=== PATIENT | male | born 1940 | race African-American/Black ===

== ENCOUNTER 2017-01-11 10:16 | Emergency (ER) | payer OTHER ==
[2017-01-11 10:36] VITALS: TEMP 98.3; BMI 23.5
--- NOTE | 2017-01-11 11:21 | PDOC ---
History of Present Illness - History of Present Illness Initial Comments: 01/11/17 11:27 The patient is a 76 year old male, with a significant past medical history of asthma, COPD, hypertension, hyperlipidemia, seizure disorder (last seizure 5 years ago), enlarged prostate, adenomatous polyp, diverticulosis/itis, spinal stenosis, disc herniation with mass, chronic back pain with opioid dependence, bipolar disorder, diabetes, everyday tobacco use, who presents to the emergency department with epigastric pain for one day. He states he woke up with the pain yesterday morning. He denies any recent trauma or heavy lifting. He reports the pain as sharp localized to his epigastric region. He states he thought it was gas, took Maalox, passed gas, but denies pain resolution. He states the pain has been constant, nonradiating, and exacerbated with bending forward or walking. He denies any increase in shortness of breath. He states he has not needed his percocet all week because his back pain wasnt too bad this week. He denies chest pain, shortness of breath, headache and dizziness. He denies fever, chills, nausea, vomit, diarrhea and constipation. He denies dysuria, frequency, urgency and hematuria. Allergies: NKDA Past surgical history: Cardiac stent x1, hernia repair (10/15/16), prostate shaved (2009), and prostatectomy, Social history: everyday tobacco use, Denies any recent alcohol or cocaine use ( formerly rehabilitated) PCP - Dr. Gomez <Emily Crystal - Last Filed: 01/11/17 11:27> <Avani Bradford - Last Filed: 01/11/17 12:49> - General Chief Complaint: Pain, Acute Stated Complaint: ABD PAIN Time Seen by Provider: 01/11/17 10:43 Past History <Emily Crystal - Last Filed: 01/11/17 11:27> - Past Medical History Anemia: No Asthma: Yes Cancer: No Cardiac Disorders: No CVA: No COPD: Yes CHF: No Dementia: No Diabetes: Yes GI Disorders: Yes (ADENOMATOUS POLYP;DIVERLOSIS/ITIS;GASTRITIS;H/H) Disorders: Yes (ENLARGED PROSTATE) HTN: Yes Hypercholesterolemia: Yes Liver Disease: No Seizures: Yes (none x 5 years) Thyroid Disease: No Other medical history: pt reports baseline bradycardia - Surgical History Cardiac Surgery: Yes (STENT X1) - Immunization History Immunization Up to Date: Yes - Psycho/Social/Smoking Cessation Hx Anxiety: No Suicidal Ideation: No Smoking Status: Yes Smoking History: Unknown if ever smoked Have you smoked in the past 12 months: Yes Number of Cigarettes Smoked Daily: 5 Cigars Per Day: 0 'Breaking Loose' booklet given: 06/07/15 Hx Alcohol Use: No Drug/Substance Use Hx: No Substance Use Type: None Hx Substance Use Treatment: Yes (outpatient rehab, AA) <Avani Bradford - Last Filed: 01/11/17 12:49> - Past Medical History Allergies/Adverse Reactions: Allergies Allergy/AdvReac Type Severity Reaction Status Date / Time No Known Allergies Allergy Verified 10/30/15 11:50 Home Medications: Ambulatory Orders Citalopram Hydrobromide [Celexa -] 20 mg PO DAILY 04/18/14 Phenytoin Na Extended [Dilantin -] 100 mg PO TID 04/18/14 Alfuzosin HCl [Alfuzosin HCl ER] 10 mg PO DAILY 04/28/15 Quetiapine Fumarate [Seroquel] 300 mg PO HS 04/28/15 Aspirin [ASA -] 81 mg PO DAILY 06/21/15 Tizanidine HCl 4 mg PO BID PRN 06/21/15 Cyanocobalamin [Vitamin B12 -] 1,000 mcg PO DAILY 01/30/16 Diphenhydramine [Benadryl -] 50 mg PO HS 01/30/16 Gabapentin [Neurontin -] 300 mg PO HS 01/30/16 Metoprolol Tartrate [Lopressor -] 25 mg PO BID 01/30/16 Metformin HCl [Glucophage -] 850 mg PO DAILY@0700 10/30/16 Review of Systems - Review of Systems Able to Perform ROS?: Yes Comments:: 01/11/17 11:27 GENERAL/CONSTITUTIONAL: No fever or chills. No weakness. HEAD, EYES, EARS, NOSE AND THROAT: No change in vision. No ear pain or discharge. No sore throat. CARDIOVASCULAR: No chest pain or shortness of breath. RESPIRATORY: No cough, wheezing, or hemoptysis. GASTROINTESTINAL: (+) epigastric pain. No nausea, vomiting, diarrhea or constipation. GENITOURINARY: No dysuria, frequency, or change in urination. MUSCULOSKELETAL: No joint or muscle swelling or pain. No neck or back pain. SKIN: No rash NEUROLOGIC: No headache, vertigo, loss of consciousness, or change in strength/ sensation. ENDOCRINE: No increased thirst. No abnormal weight change. HEMATOLOGIC/LYMPHATIC: No anemia, easy bleeding, or history of blood clots. ALLERGIC/IMMUNOLOGIC: No hives or skin allergy <Emily Crystal - Last Filed: 01/11/17 11:27> *Physical Exam - Vital Signs Last Vital Signs Temp Pulse Resp BP Pulse Ox 98.3 F 50 L 16 115/68 96 01/11/17 10:29 01/11/17 10:29 01/11/17 10:29 01/11/17 10:29 01/11/17 10:29 <Emily Crystal - Last Filed: 01/11/17 11:27> - Vital Signs Last Vital Signs Temp Pulse Resp BP Pulse Ox 98.3 F 50 L 16 115/68 96 01/11/17 10:29 01/11/17 10:29 01/11/17 10:29 01/11/17 10:29 01/11/17 10:29 - Physical Exam Comments: GENERAL: Awake, alert, and fully oriented, in no acute distress HEAD: No signs of trauma EYES: PERRLA, EOMI, sclera anicteric, conjunctiva clear ENT: Auricles normal inspection, hearing grossly normal, nares patent, oropharynx clear without exudates. Moist mucosa NECK: Normal ROM, supple, no lymphadenopathy, JVD, or masses LUNGS: Breath sounds equal, clear to auscultation bilaterally. No wheezes, and no crackles HEART: Bradycardia, normal S1 and S2, no murmurs, rubs or gallops ABDOMEN: Soft, nontender, normoactive bowel sounds. No guarding, no rebound. No masses EXTREMITIES: Normal range of motion, no edema. No clubbing or cyanosis. No cords, erythema, or tenderness NEUROLOGICAL: Cranial nerves II through XII grossly intact. Normal speech, normal gait SKIN: Warm, Dry, normal turgor, no rashes or lesions noted. <Avani Bradford - Last Filed: 01/11/17 12:49> Heart Score/ECG Review - ECG Impressions Comment:: EKG read 11:55- Sinus lula 43 bpm, 1st deg AV block <Avani Bradford - Last Filed: 01/11/17 12:49> ED Treatment Course - LABORATORY CBC & Chemistry Diagram: 01/11/17 11:41 01/11/17 11:41 <Avani Bradford - Last Filed: 01/11/17 12:49> Medical Decision Making - Medical Decision Making 01/11/17 12:48 Patient has preexisting history of sinus bradycardia. His symptoms are positional, he states he only has the pain when he twists his torso, suggesting muscular etiology. Stable for DC home. <Avani Bradford - Last Filed: 01/11/17 12:49> *DC/Admit/Observation/Transfer - Attestations Scribe Attestion: 01/11/17 11:28 Documentation prepared by Emily Crystal, acting as medical technicians for Avani Bradford MD, <Emily Crystal - Last Filed: 01/11/17 11:27> - Discharge Dispostion Admit: No <Avani Bradford - Last Filed: 01/11/17 12:49> Diagnosis at time of Disposition: Muscle strain Abdominal pain Qualifiers: Abdominal location: upper abdomen, unspecified Qualified Code(s): R10.10 - Upper abdominal pain, unspecified - Discharge Dispostion Disposition: HOME Condition at time of disposition: Stable
[2017-01-11 12:12] LABS: BASOPHIL 0.7 % (0-2.0); EOSINOPHIL 3.5 % (0-4.5); MCHC 33.1 g/dl (32.0-35.9); MEAN CELL VOLUME 96.6 fl (80-96); MEAN PLT VOLUME 6.9 fl (7.5-11.1); NEUTROPHILS 41.9 % (42.8-82.8); PLATELET COUNT 202 K/MM3 (134-434); RDW 15.4 % (11.9-15.9); WHITE BLOOD COUNT 6.7 K/mm3 (4.0-10.0)
[2017-01-11 12:31] VITALS: BP 121/64
[2017-01-11 12:32] VITALS: PULSE 48
[2017-01-11 12:36] LABS: ALBUMIN 3.8 g/dl (3.4-5.0); ANION GAP 4 (8-16); BILIRUBIN,TOTAL 0.4 mg/dL (0.2-1.0); CALCIUM 8.9 mg/dL (8.5-10.1); CO2 28 mmol/L (21-32); CREATININE 0.8 mg/dL (0.7-1.3); GLUCOSE,RANDOM 112 mg/dL (74-106); SGPT/ALT 33 U/L (12-78); TOT PROT 6.7 g/dl (6.4-8.2)
[2017-01-11 12:38] LABS: ALK PHOS 107 U/L (45-117); TROPONIN I < 0.02 ng/ml (0.00-0.05)
[2017-01-11 12:39] LABS: CPK 99 IU/L (39-308); SGOT/AST 24 U/L (15-37)
--- NOTE | 2017-01-12 20:52 | EKG ---
Test Reason : Blood Pressure : / mmHG Vent. Rate : 043 BPM Atrial Rate : 043 BPM P-R Int : 252 ms QRS Dur : 092 ms QT Int : 476 ms P-R-T Axes : 061 059 050 degrees QTc Int : 402 ms MARKED SINUS BRADYCARDIA WITH 1ST DEGREE A-V BLOCK NONSPECIFIC ST ABNORMALITY ABNORMAL ECG WHEN COMPARED WITH ECG OF 23-AUG-2015 11:47, NO SIGNIFICANT CHANGE WAS FOUND Confirmed by HUMBERTO DUPREE, ZEB ([id number]) on 01/12/2017 8:51:58 PM Referred By: Confirmed By:ZEB PAUL MD
== END 2017-01-11 13:09 | disposition home or self-care (01) ==
LOC: JER 10:16
DX: S39.011A Strain of muscle, fascia and tendon of abdomen, initial encounter (principal); X58.XXXA Exposure to other specified factors, initial encounter; Y93.89 Activity, other specified; Y92.038 Other place in apartment as the place of occurrence of the external cause; I25.10 Atherosclerotic heart disease of native coronary artery without angina pectoris; I10 Essential (primary) hypertension; Z95.5 Presence of coronary angioplasty implant and graft; E11.9 Type 2 diabetes mellitus without complications; E78.00 Pure hypercholesterolemia, unspecified; J45.909 Unspecified asthma, uncomplicated; J44.9 Chronic obstructive pulmonary disease, unspecified; N40.0 Benign prostatic hyperplasia without lower urinary tract symptoms; M54.5 Low back pain; G89.29 Other chronic pain; F31.9 Bipolar disorder, unspecified; F11.20 Opioid dependence, uncomplicated; Z86.69 Personal history of other diseases of the nervous system and sense organs; Z90.79 Acquired absence of other genital organ(s)
CPT/HCPCS: 36415; 80053; 83690; 84484; 85025; 93005; 93010; 99283-25

== ENCOUNTER 2018-01-02 10:36 | Observation (INO) | payer OTHER ==
--- NOTE | 2018-01-02 10:45 | PDOC ---
History of Present Illness - General Chief Complaint: Seizure Stated Complaint: Seizure Time Seen by Provider: 01/02/18 10:43 History Source: Patient - History of Present Illness Initial Comments: 01/02/18 11:04 "I woke up and I was twitching" Patient is a 77 year old male with a PMH of seizure disorder (cannot recall date of last seizure, as per EMR 5 years previous) asthma, COPD, HTN, HLD, enlarged prostate, adenomatous polyp, diverticulosis/itis, spinal stenosis, disc herniation with mass, chronic back pain with opioid dependence, bipolar disorder, diabetes, presents to the ED with R facial twitch. Patient states he has been intermittently non-adherent to his daily Phenytoin and notes sometime he forgets to take his medication. He denies chest pain, shortness of breath, headache and dizziness. He denies fever, chills, nausea, vomit, diarrhea and constipation. He denies dysuria, frequency, urgency and hematuria. Allergies: NKDA Past surgical history: Cardiac stent x1, hernia repair (10/15/16), prostate shaved (2009), and prostatectomy, Social history: 5 cigarettes daily, denies other toxic habits PMD: Dr. Gomez Past History - Past Medical History Allergies/Adverse Reactions: Allergies Allergy/AdvReac Type Severity Reaction Status Date / Time No Known Allergies Allergy Verified 01/02/18 18:17 Home Medications: Ambulatory Orders Citalopram Hydrobromide [Celexa -] 20 mg PO DAILY 04/18/14 Phenytoin Na Extended [Dilantin -] 100 mg PO TID 04/18/14 Alfuzosin HCl [Alfuzosin HCl ER] 10 mg PO DAILY 04/28/15 Quetiapine Fumarate [Seroquel] 300 mg PO HS 04/28/15 Cyanocobalamin [Vitamin B12 -] 1,000 mcg PO DAILY 01/30/16 Diphenhydramine [Benadryl -] 50 mg PO HS 01/30/16 Gabapentin [Neurontin -] 300 mg PO HS 01/30/16 Metoprolol Tartrate [Lopressor -] 25 mg PO BID 01/30/16 metFORMIN HCL [Glucophage -] 850 mg PO DAILY@0700 10/30/16 Albuterol Sulfate Inhaler - [Ventolin Hfa Inhaler -] 2 inh PO Q4H PRN 01/30/17 Aspirin [ASA -] 81 mg PO DAILY 01/30/17 Docusate Sodium [Colace -] 100 mg PO BID 01/30/17 Lactulose [Generlac] 10 gm PO DAILY 01/30/17 Montelukast Na [Singulair -] 10 mg PO HS 01/30/17 Omeprazole 20 mg PO DAILY 01/30/17 Quinapril HCl [Accupril] 10 mg PO DAILY 01/30/17 Rosuvastatin [Crestor -] 20 mg PO HS 01/30/17 Sitagliptin Phosphate [Januvia] 100 mg PO DAILY 01/30/17 Olopatadine HCl 1 drop OU BID #1 bottle 10/21/17 Varenicline Tartrate [Chantix] 0.5 mg NR BID 30 Days #57 tab 11/21/17 Ergocalciferol [Vitamin D2] 50,000 unit PO Q7D@1000 #4 capsule 12/22/17 Multivitamin [Multiple Vitamins] 1 each PO DAILY #30 tablet 12/22/17 Oxycodone HCl/Acetaminophen [Percocet 10-325 mg Tablet] 1 each PO TID PRN #90 tablet MDD 3 12/22/17 Tizanidine HCl 4 mg PO BID PRN #60 tablet 12/22/17 Anemia: No Asthma: Yes Cancer: No Cardiac Disorders: No CVA: No COPD: Yes CHF: No Dementia: No Diabetes: Yes GI Disorders: Yes (ADENOMATOUS POLYP;DIVERLOSIS/ITIS;GASTRITIS;H/H) Disorders: Yes (ENLARGED PROSTATE) HTN: Yes Hypercholesterolemia: Yes Liver Disease: No Seizures: Yes (none x 5 years) Thyroid Disease: No - Surgical History Abdominal Surgery: Yes (hernia repair 10/23/16) Cardiac Surgery: Yes (STENT X1) - Immunization History Immunization Up to Date: Yes - Suicide/Smoking/Psychosocial Hx Smoking Status: Yes Smoking History: Current every day smoker Have you smoked in the past 12 months: Yes Number of Cigarettes Smoked Daily: 10 Cigars Per Day: 0 Information on smoking cessation initiated: No 'Breaking Loose' booklet given: 06/07/15 Hx Alcohol Use: Yes (none x 10 years) Drug/Substance Use Hx: Yes (none x 10 years) Substance Use Type: Alcohol, Cocaine Hx Substance Use Treatment: Yes (outpatient rehab, AA) Review of Systems - Review of Systems Constitutional: No: Chills, Fever HEENTM: No: Blurred Vision, Double Vision Respiratory: No: Cough, Shortness of Breath, Stridor, Wheezing, Hemoptysis Cardiac (ROS): No: Chest Pain, Lightheadedness, Palpitations, Syncope ABD/GI: No: Constipated, Diarrhea, Nausea, Vomiting : No: Burning, Dysuria Neurological: Yes: Other (facial twitch). No: Numbness, Tingling Psychiatric: No: Anxiety, Depression *Physical Exam - Vital Signs Last Vital Signs Temp Pulse Resp BP Pulse Ox 98.4 F 78 18 124/97 99 01/02/18 10:41 01/02/18 10:41 01/02/18 10:41 01/02/18 10:41 01/02/18 10:41 - Physical Exam General Appearance: Yes: Nourished, Appropriately Dressed HEENT: positive: EOMI, SAMUEL, Other (L sided facial twitching) Neck: positive: Trachea midline, Supple Respiratory/Chest: positive: Lungs Clear, Normal Breath Sounds. negative: Crackles, Rales, Rhonchi, Wheezing Cardiovascular: positive: S1, S2. negative: Edema, JVD Gastrointestinal/Abdominal: positive: Normal Bowel Sounds, Soft. negative: Distended, Guarding, Rebound, Tenderness Musculoskeletal: negative: CVA Tenderness (R), CVA Tenderness (L) Extremity: positive: Normal Capillary Refill, Normal Inspection Integumentary: positive: Normal Color, Dry, Warm Neurologic: positive: Fully Oriented, Alert ED Treatment Course - LABORATORY CBC & Chemistry Diagram: 01/02/18 11:51 01/02/18 11:51 Medical Decision Making - Medical Decision Making 01/02/18 12:56 77 year old male presents w/seizure. L sided facial twitch at presentation. VS unremarkable DDX: seizure, post-ictal, TIA, trauma W/u: Head CT, basic labs, Dilantin level, Troponin, ECG Tx: Ativan (2 mg) 01/02/18 13:[address] negative for acute pathology. S/p Ativan, facial twitching resolved. 01/02/18 13:27 Patient lethargic s/p Ativan, but arousable Dilantin therapeutic @ 13 Case d/w Neurology (Dr. Pitt) - recommends increasing Phenytoin from 300 mg ( 200 mg QAM + 100 mg QHS) to 200 mg BID 01/02/18 13:31 Troponin (-) x1 VS stable Case d/w social work -will see if patient qualifies for home health aide 01/02/18 14:19 Case d/w inpatient medicine service. Given patient's previous remote h/o seizure, patient would benefit from further observation and evaluation including neurology consult. Case d/w hospitalist medicine service, accepts for observation admission. Patient counseled on plan of care, amenable to admission. *DC/Admit/Observation/Transfer Diagnosis at time of Disposition: Seizure - Discharge Dispostion Condition at time of disposition: Fair Decision to Admit order: Yes - Referrals - Patient Instructions - Post Discharge Activity
[2018-01-02] MEDS ORDERED: LORazepam 2 MG/ML SDV VIAL ONE (11:00)
--- NOTE | 2018-01-02 11:33 | PDOC ---
Attending Attestation - Resident Resident Name: Yamilet Garcia - ED Attending Attestation I have performed the following: I have examined & evaluated the patient, The case was reviewed & discussed with the resident, I agree w/resident's findings & plan, Exceptions are as noted - HPI HPI: 01/02/18 11:33 agree with residents HPI - Physicial Exam PE: 01/02/18 11:34 agree with residents PE - Medical Decision Making 01/02/18 13:14 77 years old past medical history significant for seizure disorder on Dilantin presents with tonic-clonic seizure. Last seizure 5 years ago. Status post seizure right-sided facial twitching. Given Ativan upon arrival. No longer with any observed seizure activity Therapeutic on Dilantin case discussed with neurology patient lethargic status post Ativan we'll observe and reassess
[2018-01-02 12:03] LABS: BASO % 0.2 % (0-2.0); EOS % 3.3 % (0-4.5); HEMATOCRIT 39.1 % (35.4-49); HEMOGLOBIN 13.2 GM/dL (11.7-16.9); LYMPH % 33.5 % (8-40); MCH 32.5 pg (25.7-33.7); MCHC 33.7 g/dl (32.0-35.9); MEAN CELL VOLUME 96.5 fl (80-96); MEAN PLT VOLUME 6.9 fl (7.5-11.1); MONO % 13.5 % (3.8-10.2); NEUT % 49.5 % (42.8-82.8); PLATELET COUNT 238 K/MM3 (134-434); RBC 4.05 M/mm3 (4.00-5.60); RDW 14.5 % (11.9-15.9)
[2018-01-02 12:24] LABS: ALBUMIN 4.1 g/dl (3.4-5.0); ALK PHOS 104 U/L (45-117); ANION GAP 9 (8-16); BILIRUBIN,TOTAL 0.3 mg/dL (0.2-1.0); BLOOD UREA NITROGEN 16 mg/dL (7-18); CALCIUM 9.1 mg/dL (8.5-10.1); CHLORIDE 108 mmol/L (98-107); CO2 25 mmol/L (21-32); CREATININE 1.2 mg/dL (0.7-1.3); GLUCOSE,RANDOM 137 mg/dL (74-106); POTASSIUM 4.3 mmol/L (3.5-5.1); SGOT/AST 12 U/L (15-37); SGPT/ALT 19 U/L (12-78); SODIUM 142 mmol/L (136-145); TOT PROT 6.9 g/dl (6.4-8.2)
--- NOTE | 2018-01-02 16:54 | HP ---
CHIEF COMPLAINT: "I was twitching" PCP: Dr. Patricia Colbert HISTORY OF PRESENT ILLNESS: Patient poor historian and is lethargic after receiving Lorazepam 2mg IM. H&P obtained mainly from chart review This is a 77 year old male with PMHx of seizure disorder (states last seizure 1 year ago), asthma, HTN, hyperlipidemia, enlarged prostate, adenomatous polyp, diverticulosis/itis, spinal stenosis, disc herniation, chronic back pain with opioid dependence, bipolar disorder, diabetes, presents to the ED with a right facial twitch since yesterday. The patient was unable to provide me with any more detail. He was given Ativan in the ED for possible seizure activity. ER course was notable for: (1) Temp 98.4, pulse 78, BP 124/97, resp 18, O2 99% on RA (2) Dilantin level 13 (3) Head CT with moderate atrophy. No gross evidence of a focal intracranial lesion or hemorrhage is seen Recent Travel: unknown PAST MEDICAL HISTORY: as above PAST SURGICAL HISTORY: unknown Social History: Smokin cigarettes per day/60 years Alcohol: unknown Drugs: denies Family History: Allergies No Known Allergies Allergy (Verified 01/11/17 13:11) HOME MEDICATIONS: Home Medications Medication Instructions Recorded Citalopram Hydrobromide [Celexa -] 20 mg PO DAILY 04/18/14 Phenytoin Na Extended [Dilantin -] 100 mg PO TID 04/18/14 Alfuzosin HCl [Alfuzosin HCl ER] 10 mg PO DAILY 04/28/15 Quetiapine Fumarate [Seroquel] 300 mg PO HS 04/28/15 Cyanocobalamin [Vitamin B12 -] 1,000 mcg PO DAILY 01/30/16 Diphenhydramine [Benadryl -] 50 mg PO HS 01/30/16 Gabapentin [Neurontin -] 300 mg PO HS 01/30/16 Metoprolol Tartrate [Lopressor -] 25 mg PO BID 01/30/16 metFORMIN HCL [Glucophage -] 850 mg PO DAILY@0700 10/30/16 Albuterol Sulfate Inhaler - 2 inh PO Q4H PRN 01/30/17 [Ventolin Hfa Inhaler -] Aspirin [ASA -] 81 mg PO DAILY 01/30/17 Docusate Sodium [Colace -] 100 mg PO BID 01/30/17 Lactulose [Generlac] 10 gm PO DAILY 01/30/17 Montelukast Na [Singulair -] 10 mg PO HS 01/30/17 Omeprazole 20 mg PO DAILY 01/30/17 Quinapril HCl [Accupril] 10 mg PO DAILY 01/30/17 Rosuvastatin [Crestor -] 20 mg PO HS 01/30/17 Sitagliptin Phosphate [Januvia] 100 mg PO DAILY 01/30/17 Olopatadine HCl 1 drop OU BID #1 bottle 10/21/17 Varenicline Tartrate [Chantix] 0.5 mg NR BID 30 Days #57 tab 11/21/17 Ergocalciferol [Vitamin D2] 50,000 unit PO Q7D@1000 #4 capsule 12/22/17 Multivitamin [Multiple Vitamins] 1 each PO DAILY #30 tablet 12/22/17 Oxycodone HCl/Acetaminophen 1 each PO TID PRN #90 tablet MDD 3 12/22/17 [Percocet 10-325 mg Tablet] Tizanidine HCl 4 mg PO BID PRN #60 tablet 12/22/17 REVIEW OF SYSTEMS Limited as patient is lethargic and falls asleep during questioning Absent: unexplained weight gain, unexplained weight loss, heat intolerance, cold intolerance NEUROLOGIC: Right sided facial twitching that began yesterday PHYSICAL EXAMINATION Vital Signs - 24 hr 01/02/18 01/02/18 10:41 15:03 Temperature 98.4 F Pulse Rate 78 Pulse Rate [ 62 Apical] Respiratory 18 16 Rate Blood Pressure 124/97 Blood Pressure 130/67 [Left Arm] O2 Sat by Pulse 99 98 Oximetry (%) GENERAL: Lethargic, A&Ox2 (person and place), thinks its 1985 HEAD: Normal with no signs of trauma. EYES: Pupils equal, round and reactive to light EARS, NOSE, THROAT: Ears normal, nares patent, oropharynx clear without exudates. Moist mucous membranes. NECK: Normal range of motion, supple without lymphadenopathy LUNGS: Breath sounds equal, clear to auscultation bilaterally. No wheezes, and no crackles. No accessory muscle use. HEART: Regular rate and rhythm, normal S1 and S2 ABDOMEN: Soft, nontender, not distended, normoactive bowel sounds, no guarding, no rebound UPPER EXTREMITIES: 2+ pulses, warm, well-perfused. No cyanosis. No clubbing. No peripheral edema. LOWER EXTREMITIES: 2+ pulses, warm, well-perfused. No calf tenderness. No peripheral edema. NEUROLOGICAL: Unable to assess CN, patient was too lethargic Laboratory Results - last 24 hr 01/02/18 01/02/18 01/02/18 11:51 11:51 11:51 WBC 7.0 RBC 4.05 Hgb 13.2 Hct 39.1 MCV 96.5 H MCH 32.5 MCHC 33.7 RDW 14.5 Plt Count 238 MPV 6.9 L Absolute Neuts (auto) 3.5 Neutrophils % 49.5 Lymphocytes % 33.5 Monocytes % 13.5 H Eosinophils % 3.3 Basophils % 0.2 Nucleated RBC % 0 Sodium 142 Potassium 4.3 Chloride 108 H Carbon Dioxide 25 Anion Gap 9 BUN 16 Creatinine 1.2 Creat Clearance w eGFR 58.56 Random Glucose 137 H Calcium 9.1 Total Bilirubin 0.3 AST 12 L ALT 19 Alkaline Phosphatase 104 Total Protein 6.9 Albumin 4.1 Phenytoin 13.0 Assessment: This is a 77 year old male with PMHx of seizure disorder (states last seizure 1 year ago), asthma, HTN, hyperlipidemia, enlarged prostate, adenomatous polyp, diverticulosis/itis, spinal stenosis, disc herniation, chronic back pain with opioid dependence, bipolar disorder, diabetes, presents to the ED with a right facial twitch since yesterday. Plan: 1) Right facial twitch - No evidence of seizure activity - Received Ativan in ED, now lethargic - F/u neurology consult 2) Seizure disorder - Patient may be non-compliant with dilantin, level was 13 - Per neuro, increased Dilantin to 200mg po bid - Q4h neuro checks - F/u neuro consult 3) Asthma - No evidence of acute exacerbation - Duonebs prn 4) F/E/N: - Diabetic diet - Monitor electrolytes 5) Prophylaxis: - SCDs bilaterally 6) Dispo: - Once condition improves CODE STATUS: FULL CODE Visit type - Emergency Visit Emergency Visit: Yes ED Registration Date: 01/02/18 Care time: The patient presented to the Emergency Department on the above date and was hospitalized for further evaluation of their emergent condition. - New Patient This patient is new to me today: Yes Date on this admission: 01/02/18 - Critical Care Critical Care patient: No Hospitalist Screening - Colonoscopy Questionnaire Colonoscopy Questionnaire: Colonoscopy Questionnaire - Patient: 50 - 75 years old and never had a screening colonoscopy: Unknown History of colon or rectal polyps, or CA: Unknown History of IBD, Crohn's disease or UC: Unknown History of abdominal radiation therapy as a child: Unknown - Relative: 1 with colon or rectal CA, or polyps at age 60 or younger: Unknown Colon or rectal CA diagnosed at age 45 or younger: Unknown Multiple relatives with colon or rectal CA: Unknown - Outcome: Screening Result: Negative Screen
[2018-01-02] MEDS ORDERED: LORazepam 2 MG/ML SDV VIAL IVPUSH PRN (18:52)
[2018-01-02] MEDS ORDERED: ALBUTEROL SO4 2.5/IPRATROPIUM 0.5 INH SOL 3 ML VIAL.NEB. NEB PRN (18:54)
[2018-01-02 21:03] VITALS: BMI 24.3
[2018-01-02] MEDS: INSULIN SLIDING SCALE (NOVOLOG) 1 VIAL SQ SCH (22:07)
[2018-01-02] MEDS: PHENYTOIN NA EXTENDED 100 MG CAPSULE (FP) PO SCH (22:29)
[2018-01-03] MEDS: INSULIN SLIDING SCALE (NOVOLOG) 1 VIAL SQ SCH ×2 (06:03→11:51)
[2018-01-03 07:02] LABS: HEMATOCRIT 38.2 % (35.4-49); HEMOGLOBIN 13.1 GM/dL (11.7-16.9); MCHC 34.4 g/dl (32.0-35.9); MEAN PLT VOLUME 6.6 fl (7.5-11.1); PLATELET COUNT 214 K/MM3 (134-434); RBC 3.98 M/mm3 (4.00-5.60); RDW 14.6 % (11.9-15.9); WHITE BLOOD COUNT 6.4 K/mm3 (4.0-10.0)
[2018-01-03 07:29] LABS: ALBUMIN 3.6 g/dl (3.4-5.0); ANION GAP 7 (8-16); BLOOD UREA NITROGEN 17 mg/dL (7-18); CALCIUM 8.8 mg/dL (8.5-10.1); CHLORIDE 108 mmol/L (98-107); CO2 26 mmol/L (21-32); GLUCOSE,RANDOM 116 mg/dL (74-106); MAGNESIUM 2.4 mg/dL (1.8-2.4); POTASSIUM 4.3 mmol/L (3.5-5.1); SODIUM 141 mmol/L (136-145)
[2018-01-03 07:33] LABS: ALK PHOS 98 U/L (45-117); BILIRUBIN,TOTAL 0.2 mg/dL (0.2-1.0); CREATININE 0.9 mg/dL (0.7-1.3); PHOSPHOROUS 3.7 mg/dL (2.5-4.9); SGOT/AST 13 U/L (15-37); SGPT/ALT 20 U/L (12-78); TOT PROT 6.4 g/dl (6.4-8.2)
[2018-01-03 09:32] VITALS: BP 143/69; PULSE 53; TEMP 98.2
[2018-01-03] MEDS: PHENYTOIN NA EXTENDED 100 MG CAPSULE (FP) PO SCH (10:29)
[2018-01-03] MEDS ORDERED: INSULIN (NOVOLOG) ASPART 100 UNITS/ML 10ML VIAL ONE (11:45)
--- NOTE | 2018-01-03 12:50 | DS ---
Physical Exam: SUBJECTIVE: Patient seen and examined. No further twitching. No seizure activity. OBJECTIVE: Vital Signs Period Temp Pulse Resp BP Sys/Olivares Pulse Ox Last 24 Hr 97.7 F-98.7 F 53-77 10-20 112-143/61-79 96-99 PHYSICAL EXAM GENERAL: The patient is awake, alert, and fully oriented, in no acute distress. HEAD: Normal with no signs of trauma. EYES: PERRL, extraocular movements intact, sclera anicteric, conjunctiva clear. ENT: Ears normal, nares patent, oropharynx clear without exudates, moist mucous membranes. NECK: Trachea midline, full range of motion, supple. LUNGS: Breath sounds equal, clear to auscultation bilaterally, no wheezes, no crackles, no accessory muscle use. HEART: Regular rate and rhythm, S1, S2 ABDOMEN: Soft, nontender, nondistended, normoactive bowel sounds, no guarding, no rebound EXTREMITIES: 2+ pulses, warm, well-perfused, no edema. NEUROLOGICAL: Cranial nerves II through XII grossly intact. Normal speech, gait not observed. LABS Laboratory Results - last 24 hr 01/02/18 01/03/18 01/03/18 22:04 05:20 06:24 WBC 6.4 RBC 3.98 L Hgb 13.1 Hct 38.2 MCV 96.0 MCH 33.0 MCHC 34.4 RDW 14.6 Plt Count 214 MPV 6.6 L Sodium Potassium Chloride Carbon Dioxide Anion Gap BUN Creatinine Creat Clearance w eGFR POC Glucometer 102 122 Random Glucose Calcium Phosphorus Magnesium Total Bilirubin AST ALT Alkaline Phosphatase Total Protein Albumin 01/03/18 01/03/18 06:24 11:39 WBC RBC Hgb Hct MCV MCH MCHC RDW Plt Count MPV Sodium 141 Potassium 4.3 Chloride 108 H Carbon Dioxide 26 Anion Gap 7 L BUN 17 Creatinine 0.9 Creat Clearance w eGFR > 60 POC Glucometer 165 Random Glucose 116 H Calcium 8.8 Phosphorus 3.7 Magnesium 2.4 Total Bilirubin 0.2 AST 13 L ALT 20 Alkaline Phosphatase 98 Total Protein 6.4 Albumin 3.6 HOSPITAL COURSE: Date of Admission:01/02/18 Date of Discharge: 01/03/18 77 year old male with PMH of seizure disorder (states last seizure 1 year ago), asthma, HTN, hyperlipidemia, enlarged prostate, adenomatous polyp, diverticulosis/itis, spinal stenosis, disc herniation, chronic back pain with opioid dependence, bipolar disorder, and diabetes. Presented to the ED with a report of having woken up and was twitching. On exam in the ED patient was observed to have facial twitching. Patient was observed overnight. No further twitching observed. No seizure-type activity. Dilantin level was checked and theraputic. Head CT showed moderate atrophy with no gross evidence of a focal intracranial lesion or hemorrhage. Seen and evaluated by neuro Dr. Pitt. Neurologically at baseline. Patient plans to follow up with Dr. Pitt as an outpatient. Minutes to complete discharge: 35 Discharge Summary Reason For Visit: SEIZURE DISORDER Current Active Problems Seizure (Acute) Condition: Stable - Instructions Diet, Activity, Other Instructions: Your dilantin daily dose has been increased and a new prescription has been sent to your pharmacy. Take this increased dose until you see your primary care provider or neurologist. Dr. Pitt is the neurologist who saw you in the hospital. His contact information is included in this discharge packet. Return to the emergency department for any new or worsening symptoms. Referrals: Tang Pitt MD [Staff Physician] - 2 Weeks Heike Guido MD [Primary Care Provider] - Disposition: HOME - Home Medications Comprehensive Discharge Medication List: Ambulatory Orders Citalopram Hydrobromide [Celexa -] 20 mg PO DAILY 04/18/14 Alfuzosin HCl [Alfuzosin HCl ER] 10 mg PO DAILY 04/28/15 Quetiapine Fumarate [Seroquel] 300 mg PO HS 04/28/15 Cyanocobalamin [Vitamin B12 -] 1,000 mcg PO DAILY 01/30/16 Diphenhydramine [Benadryl Capsule -] 50 mg PO HS 01/30/16 Gabapentin [Neurontin -] 300 mg PO HS 01/30/16 Metoprolol Tartrate [Lopressor -] 25 mg PO BID 01/30/16 metFORMIN HCL [Glucophage -] 850 mg PO DAILY@0700 10/30/16 Albuterol Sulfate Inhaler - [Ventolin HFA Inhaler -] 2 inh PO Q4H PRN 01/30/17 Aspirin [ASA -] 81 mg PO DAILY 01/30/17 Docusate Sodium [Colace -] 100 mg PO BID 01/30/17 Lactulose [Generlac] 10 gm PO DAILY 01/30/17 Montelukast Na [Singulair -] 10 mg PO HS 01/30/17 Omeprazole 20 mg PO DAILY 01/30/17 Quinapril HCl [Accupril -] 10 mg PO DAILY 01/30/17 Rosuvastatin [Crestor -] 20 mg PO HS 01/30/17 Sitagliptin Phosphate [Januvia] 100 mg PO DAILY 01/30/17 Olopatadine HCl 1 drop OU BID #1 bottle 10/21/17 Varenicline Tartrate [Chantix -] 0.5 mg NR BID 30 Days #57 tab 11/21/17 Ergocalciferol [Vitamin D2] 50,000 unit PO Q7D@1000 #4 capsule 12/22/17 Multivitamin [Multiple Vitamins] 1 each PO DAILY #30 tablet 12/22/17 Oxycodone HCl/Acetaminophen [Percocet 10-325 mg Tablet] 1 each PO TID PRN #90 tablet MDD 3 12/22/17 Tizanidine HCl 4 mg PO BID PRN #60 tablet 12/22/17 Phenytoin Na Extended [Dilantin -] 200 mg PO BID #60 capsule 01/03/18 This patient is new to me today: Yes Date on this admission: 01/03/18 Emergency Visit: Yes ED Registration Date: 01/02/18 Care time: The patient presented to the Emergency Department on the above date and was hospitalized for further evaluation of their emergent condition. Critical Care patient: No - Discharge Referral Referred to [facility] Med P.C.: No
--- NOTE | 2018-01-03 13:15 | CONSULT ---
Consult - text type - Consultation Consultation Note: Neurology HISTORY OF PRESENT ILLNESS: 77 year old male with PMHx of seizure disorder (states last seizure 1 year ago) , asthma, HTN, hyperlipidemia, enlarged prostate, adenomatous polyp, diverticulosis/itis, spinal stenosis, disc herniation, chronic back pain with opioid dependence, bipolar disorder, diabetes, presents to the ED with a right facial twitch. Contacted by ER and was having facial twitching and concern regarding further seizure and therefore kept overnight. Dilantin level checked and theraputic. Seen this AM and stable. Reports previously seeing Dr. Velázquez more than a year ago, offered to have him consult, patient requested this provider manage case. Head CT with moderate atrophy. No gross evidence of a focal intracranial lesion or hemorrhage is seen. Neurologically at baseline. Discussed with primary, plan for discharge today and can have outpatient followup. PAST MEDICAL HISTORY: as above PAST SURGICAL HISTORY: unknown Social History: Smokin cigarettes per day/60 years Alcohol: unknown Drugs: denies Family History: Allergies No Known Allergies Allergy (Verified 01/11/17 13:11) HOME MEDICATIONS: Home Medications Medication Instructions Recorded Citalopram Hydrobromide [Celexa -] 20 mg PO DAILY 04/18/14 Phenytoin Na Extended [Dilantin -] 100 mg PO TID 04/18/14 Alfuzosin HCl [Alfuzosin HCl ER] 10 mg PO DAILY 04/28/15 Quetiapine Fumarate [Seroquel] 300 mg PO HS 04/28/15 Cyanocobalamin [Vitamin B12 -] 1,000 mcg PO DAILY 01/30/16 Diphenhydramine [Benadryl -] 50 mg PO HS 01/30/16 Gabapentin [Neurontin -] 300 mg PO HS 01/30/16 Metoprolol Tartrate [Lopressor -] 25 mg PO BID 01/30/16 metFORMIN HCL [Glucophage -] 850 mg PO DAILY@0700 10/30/16 Albuterol Sulfate Inhaler - 2 inh PO Q4H PRN 01/30/17 [Ventolin Hfa Inhaler -] Aspirin [ASA -] 81 mg PO DAILY 01/30/17 Docusate Sodium [Colace -] 100 mg PO BID 01/30/17 Lactulose [Generlac] 10 gm PO DAILY 01/30/17 Montelukast Na [Singulair -] 10 mg PO HS 01/30/17 Omeprazole 20 mg PO DAILY 01/30/17 Quinapril HCl [Accupril] 10 mg PO DAILY 01/30/17 Rosuvastatin [Crestor -] 20 mg PO HS 01/30/17 Sitagliptin Phosphate [Januvia] 100 mg PO DAILY 01/30/17 Olopatadine HCl 1 drop OU BID #1 bottle 10/21/17 Varenicline Tartrate [Chantix] 0.5 mg NR BID 30 Days #57 tab 11/21/17 Ergocalciferol [Vitamin D2] 50,000 unit PO Q7D@1000 #4 capsule 12/22/17 Multivitamin [Multiple Vitamins] 1 each PO DAILY #30 tablet 12/22/17 Oxycodone HCl/Acetaminophen 1 each PO TID PRN #90 tablet MDD 3 12/22/17 [Percocet 10-325 mg Tablet] Tizanidine HCl 4 mg PO BID PRN #60 tablet 12/22/17 REVIEW OF SYSTEMS Limited as patient is lethargic and falls asleep during questioning Absent: unexplained weight gain, unexplained weight loss, heat intolerance, cold intolerance PHYSICAL EXAMINATION Vital Signs Period Temp Pulse Resp BP Sys/Olivares Pulse Ox Last 24 Hr 97.7 F-98.7 F 53-77 10-20 112-143/61-79 96-99 GENERAL: Lethargic, A&Ox2 (person and place), thinks its 1985 HEAD: Normal with no signs of trauma. EYES: Pupils equal, round and reactive to light EARS, NOSE, THROAT: Ears normal, nares patent, oropharynx clear without exudates. Moist mucous membranes. NECK: Normal range of motion, supple without lymphadenopathy LUNGS: Breath sounds equal, clear to auscultation bilaterally. No wheezes, and no crackles. No accessory muscle use. HEART: Regular rate and rhythm, normal S1 and S2 ABDOMEN: Soft, nontender, not distended, normoactive bowel sounds, no guarding, no rebound UPPER EXTREMITIES: 2+ pulses, warm, well-perfused. No cyanosis. No clubbing. No peripheral edema. LOWER EXTREMITIES: 2+ pulses, warm, well-perfused. No calf tenderness. No peripheral edema. NEUROLOGICAL: Awake, alert, interactive, no abnormal movements, CN intact, finger to nose normal, strenght grossly symetric Laboratory Results - last 24 hr 01/02/18 01/02/18 01/02/18 11:51 11:51 11:51 WBC 7.0 RBC 4.05 Hgb 13.2 Hct 39.1 MCV 96.5 H MCH 32.5 MCHC 33.7 RDW 14.5 Plt Count 238 MPV 6.9 L Absolute Neuts (auto) 3.5 Neutrophils % 49.5 Lymphocytes % 33.5 Monocytes % 13.5 H Eosinophils % 3.3 Basophils % 0.2 Nucleated RBC % 0 Sodium 142 Potassium 4.3 Chloride 108 H Carbon Dioxide 25 Anion Gap 9 BUN 16 Creatinine 1.2 Creat Clearance w eGFR 58.56 Random Glucose 137 H Calcium 9.1 Total Bilirubin 0.3 AST 12 L ALT 19 Alkaline Phosphatase 104 Total Protein 6.9 Albumin [address] head reviewed Assessment: 77 year old male with PMHx of seizure disorder (states last seizure 1 year ago) , asthma, HTN, hyperlipidemia, enlarged prostate, adenomatous polyp, diverticulosis/itis, spinal stenosis, disc herniation, chronic back pain with opioid dependence, bipolar disorder, diabetes, presents to the ED with a right facial twitch. Contacted by ER and was having facial twitching and concern regarding further seizure and therefore kept overnight. Dilantin level checked and theraputic. Seen this AM and stable. Reports previously seeing Dr. Velázquez more than a year ago, offered to have him consult, patient requested this provider manage case. Head CT with moderate atrophy. No gross evidence of a focal intracranial lesion or hemorrhage is seen. Neurologically at baseline. Discussed with primary, plan for discharge today and can have outpatient followup.
== END 2018-01-03 13:39 | disposition home or self-care (01) ==
LOC: JER 10:36 → JERBED 14:20 → J7W 18:45
PROVIDERS: ADMIT Internal Medicine; ATTEND Nurse Practitioner Acute Care
PROC: 3E033GC Introduction of Other Therapeutic Substance into Peripheral Vein, Percutaneous Approach (ICD-10-PCS; principal; 2018-01-02)
PROC: 3E013VG Introduction of Insulin into Subcutaneous Tissue, Percutaneous Approach (ICD-10-PCS; 2018-01-02)
DX: G40.89 Other seizures (principal); G51.3 Clonic hemifacial spasm; I10 Essential (primary) hypertension; E78.5 Hyperlipidemia, unspecified; J45.909 Unspecified asthma, uncomplicated; J44.9 Chronic obstructive pulmonary disease, unspecified; N40.0 Benign prostatic hyperplasia without lower urinary tract symptoms; M48.00 Spinal stenosis, site unspecified; M54.9 Dorsalgia, unspecified; G89.29 Other chronic pain; F31.9 Bipolar disorder, unspecified; E11.9 Type 2 diabetes mellitus without complications; Z79.891 Long term (current) use of opiate analgesic; F17.210 Nicotine dependence, cigarettes, uncomplicated; Z91.14 Patient's other noncompliance with medication regimen; Z79.84 Long term (current) use of oral hypoglycemic drugs; Z79.82 Long term (current) use of aspirin
CPT/HCPCS: 36415; 70450-TC; 80053; 80185; 82962; 83735; 84100; 85025; 85027; 96372; 96374; 99285-25; G0378

== ENCOUNTER 2018-05-25 12:02 | Observation (INO) | payer OTHER ==
--- NOTE | 2018-05-25 13:40 | PDOC ---
Attending Attestation - Resident Resident Name: Radhika Arias - ED Attending Attestation I have performed the following: I have examined & evaluated the patient, The case was reviewed & discussed with the resident, I agree w/resident's findings & plan - HPI HPI: 05/25/18 14:30 The patient is a 77 year old male, with a significant past medical history of well-controlled seizure disorder, NIDDM, asthma, COPD, HTN, HLD, BPH, spinal stenosis, disc herniation (with mass), chronic back pain, opioid dependence, bipolar disorder, who presents to the emergency department s/p fall with, a laceration to the eyebrow. As per patient, he was very dizzy and felt unsteady prior to his fall and notes he believed he was going to pass out. He was able to ambulate with assistance s/p fall. Patient is unaware of last tetanus shot. He denies any recent fevers or chills. He denies any recent nausea, vomit, diarrhea or constipation. He denies any recent chest pain or shortness of breath. He denies any recent dysuria, frequency, urgency or hematuria. Allergies: NKDA Past surgical history: Cardiac stent x1, hernia repair (10/15/16), prostate shaved (2009), and prostatectomy, Social history: 5 cigarettes daily, denies other toxic habits Primary Care Physician: Dr. Guido <Shelly Costello - Last Filed: 05/25/18 14:30> - Physicial Exam PE: 05/25/18 18:51 Agree with resident exam. Patient is alert and oriented x 3 and is neurologically intact. + 3 cm laceration to the eyebrow. CV: RRR no m/r/g. Pulm" CTA b/l. Abdomen: non tender, non distended, no guarding or rebound. - Medical Decision Making 05/25/18 18:54 Pt presents to the ED complaining of presyncope and laceration to the head. Differential includes dehydration, ACS, less likely intracranial injury. Will check labs and CT head and C spine. Will repair laceration and admit for syncope work up. <Marilee Park - Last Filed: 05/25/18 18:58> Attestations - Attestations 05/25/18 14:30 Documentation prepared by Shelly Costello, acting as medical office secretary for Marilee Park MD. <Shelly Costello - Last Filed: 05/25/18 14:30>
--- NOTE | 2018-05-25 13:58 | PDOC ---
History of Present Illness - General Chief Complaint: Injury Stated Complaint: FALL Time Seen by Provider: 05/25/18 13:25 History Source: Patient Exam Limitations: No Limitations - History of Present Illness Initial Comments: 05/25/18 13:53 [id number] with h/o well-controlled seizure disorder, NIDDM, asthma, COPD, HTN, HLD, BPH, spinal stenosis, disc herniation with mass, chronic back pain, opioid dependence, bipolar disorder, who was BIBEMS s/p fall onto his face with left eyebrow laceration. States that he was walking through a doorway and believes he may have tripped on something, fell onto his right side, and hit his left eyebrow on the door. Believes he was imbalanced before falling and believes he was very dizzy ("almost blacked out for a couple minutes"). He had help to stand up and walk to the EMS stretcher. Now has mild left eyebrow pain but otherwise no complaints, no n/t/w focally, no vision changes, chest pain, palpitations, SOB, abdominal pain, or other symptoms. Has been struggling with imbalance on walking for the past month. Cannot recall the date of his last tetanus update. Past History - Past Medical History Allergies/Adverse Reactions: Allergies Allergy/AdvReac Type Severity Reaction Status Date / Time No Known Allergies Allergy Verified 01/02/18 18:17 Home Medications: Ambulatory Orders Citalopram Hydrobromide [Celexa -] 20 mg PO DAILY 04/18/14 Alfuzosin HCl [Alfuzosin HCl ER] 10 mg PO DAILY 04/28/15 Quetiapine Fumarate [Seroquel] 300 mg PO HS 04/28/15 Cyanocobalamin [Vitamin B12 -] 1,000 mcg PO DAILY 01/30/16 Diphenhydramine [Benadryl Capsule -] 50 mg PO HS 01/30/16 Gabapentin [Neurontin -] 300 mg PO HS 01/30/16 Metoprolol Tartrate [Lopressor -] 25 mg PO BID 01/30/16 metFORMIN HCL [Glucophage -] 850 mg PO DAILY@0700 10/30/16 Albuterol Sulfate Inhaler - [Ventolin HFA Inhaler -] 2 inh PO Q4H PRN 01/30/17 Aspirin [ASA -] 81 mg PO DAILY 01/30/17 Docusate Sodium [Colace -] 100 mg PO BID 01/30/17 Montelukast Na [Singulair -] 10 mg PO HS 01/30/17 Omeprazole 20 mg PO DAILY 01/30/17 Quinapril HCl [Accupril -] 10 mg PO DAILY 01/30/17 Rosuvastatin [Crestor -] 20 mg PO HS 01/30/17 Sitagliptin Phosphate [Januvia] 100 mg PO DAILY 01/30/17 Olopatadine HCl 1 drop OU BID #1 bottle 10/21/17 Varenicline Tartrate [Chantix -] 0.5 mg NR BID 30 Days #57 tab 11/21/17 Phenytoin Na Extended [Dilantin -] 200 mg PO BID #60 capsule 01/21/18 Ergocalciferol [Vitamin D2] 50,000 unit PO Q7D #4 capsule 05/25/18 Lactulose 10 gm PO DAILY #1 bottle 05/25/18 Multivitamin [Multiple Vitamins] 1 each PO DAILY #30 tablet 05/25/18 Oxycodone HCl/Acetaminophen [Percocet 10-325 mg Tablet] 1 each PO QID PRN #120 tablet MDD 4 05/25/18 Tizanidine HCl 4 mg PO BID PRN #60 tablet 05/25/18 Anemia: No Asthma: Yes Cancer: No Cardiac Disorders: No CVA: No COPD: Yes CHF: No Dementia: No Diabetes: Yes GI Disorders: Yes (ADENOMATOUS POLYP;DIVERLOSIS/ITIS;GASTRITIS;H/H) Disorders: Yes (ENLARGED PROSTATE) HTN: Yes Hypercholesterolemia: Yes Liver Disease: No Seizures: Yes (? seizure 01/03/18) Thyroid Disease: No - Surgical History Abdominal Surgery: Yes (hernia repair 10/23/16) Appendectomy: No Cardiac Surgery: Yes (STENT X1) Cholecystectomy: No Lung Surgery: No Neurologic Surgery: No Orthopedic Surgery: No - Immunization History Immunization Up to Date: Yes - Suicide/Smoking/Psychosocial Hx Smoking Status: Yes Smoking History: Never smoked Have you smoked in the past 12 months: Yes Number of Cigarettes Smoked Daily: 10 Cigars Per Day: 0 'Breaking Loose' booklet given: 06/07/15 Hx Alcohol Use: Yes (none x 10 years) Drug/Substance Use Hx: Yes (none x 10 years) Substance Use Type: Alcohol, Cocaine Hx Substance Use Treatment: Yes (outpatient rehab, AA) Trauma Specific PMHX - Complaint Specific PMHX Arthritis: Yes (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) Back Injury: Yes Review of Systems - Review of Systems Able to Perform ROS?: Yes Comments:: 05/25/18 14:03 GEN: no fever, chills, malaise, generalized weakness, or weight change HEENT: eyebrow pain at laceration, no ear pain, sore throat, vision change, or eye pain CV: lightheadedness (resolved), no chest pain, palpitations, or edema RESP: no cough, wheezing, or SOB GI: no abdominal pain, nausea, vomiting, diarrhea, constipation, or white/black/ bloody stool : no dysuria, hematuria, incontinence, retention, bleeding, or discharge MSK: no neck/back pain, muscle weakness/pain, or joint swelling/pain NEURO: imbalance, no headache, numbness, tingling, or focal weakness PSYCH: no substance use, no behavior change SKIN: laceration, no jaundice, no rash ROS otherwise negative except as noted in HPI *Physical Exam - Vital Signs Last Vital Signs Temp Pulse Resp BP Pulse Ox 98.0 F 61 18 159/72 100 05/25/18 12:08 05/25/18 12:08 05/25/18 12:08 05/25/18 12:08 05/25/18 12:08 - Physical Exam Comments: 05/25/18 14:04 GENERAL: well-appearing, eating food tray, head wrapped in coban, A/Ox4, no distress, answers questions appropriately HEENT: PERRLA, EOMI, moist mucous membranes, no cephalohematoma, left eyebrow 4 cm full thickness laceration which is hemostatic, no raccoon eyes, no lr sign, no hemotympanum, no CSF rhinorrhea/otorrhea, no jaw malocclusion, PERRLA, EOMI, moist mucous membranes NECK/BACK: no midline ttp, no spinal stepoff or deformity, no hematoma, full ROM , neck supple CARDIOVASCULAR: regular rate/rhythm, normal S1S2, 1/6 systolic ejection murmur, strong peripheral pulses, capillary refill <2 seconds, extremities wwp, no edema LUNGS/RESPIRATORY: no respiratory distress, CTAB GI/ABDOMEN: symmetric [id number], normoactive BS, soft, no ttp, no midline pulsatile masses : no CVA tenderness EXTREMITIES: no muscle atrophy, no acute deformity, no edema SKIN: warm and dry, no pallor, no jaundice, no rash, no bruising, no skin breakdown, no cuts, no lesions NEUROLOGICAL: GCS 15, CN II-XII grossly intact, 5/5 strength proximally and distally, no facial droop Moderate Sedation - Procedure Monitoring Vital Signs: Procedure Monitoring Vital Signs Temperature 98.0 F 05/25/18 12:08 Pulse Rate 61 05/25/18 12:08 Respiratory Rate 18 05/25/18 12:08 Blood Pressure 159/72 05/25/18 12:08 O2 Sat by Pulse Oximetry (%) 100 05/25/18 12:08 Medical Decision Making - Medical Decision Making 05/25/18 14:09 Pt p/w fall and head injury. Initial Vital Signs Temp Pulse Resp BP Pulse Ox 97.6 F 73 16 160/83 98 05/25/18 10:17 05/25/18 10:17 05/25/18 10:17 05/25/18 10:17 05/25/18 10:17 Exam: As noted in Physical Exam section. DDX IBNLT: scalp contusion with laceration, concussion, ICH, skull fracture W/U ordered: Head and C-spine CT, Labs as noted below, EKG, CXR TX ordered: Lac to be repaired, Ofirmev CT Head: CT C-Spine: CXR: EKG: Reviewed; See HEART/ECG Section. Labs: Reassessment: Repeat VS: ADMIT The Pt is unsafe for discharge at this time. They require further hospital observation, workup, and treatment. Microblog sent to [facility] for admission. Blank Decision to Admit order is placed per ED protocol. Spoke with admitting team customer relations representative, in agreement Pt to be admitted. Decision to Admit order corrected with admitting team covering attendings name. TRANSFER The Pt is unsafe for discharge at this time. They require further hospital observation, workup, and treatment. They need evaluation at a trauma center given the mechanism and w/u results. Transfer center called and connected with admitting provider. Pt to be transferred to: [id number] Pt accepted in transfer to: [facility] Patient/family informed of plan for transfer and they agree with this plan. Transfer paperwork completed and signed by all indicated parties. EMS crew arrives and transfers Pt to ambulance without issue. DISCHARGE The Pt has gotten significant relief of symptoms while in the ED. They have been observed without AMS, n/v, LOC, or focal neuro findings in the ED. Workup is not concerning for emergency-level pathology at this time. The Pt is appropriate for discharge with close outpatient follow up. They are comfortable with this plan and will follow up with their primary care provider in 1-3 days. Return precautions for concussion and CHI are discussed and they will come back to the ER if necessary.
[2018-05-25] MEDS ORDERED: DIPHTH,PERTUSS(ACELL),TET 0.5 ML DISP.SYRIN IM ONE ×2 (14:01→18:48)
[2018-05-25] MEDS ORDERED: ACETAMINOPHEN 1000 MG/100 ML VIAL (NON FORMULARY) IVPB ONE (14:01)
[2018-05-25 18:37] LABS: BASO % 0.3 % (0-2.0); EOS % 1.8 % (0-4.5); HEMOGLOBIN 13.7 GM/dL (11.7-16.9); LYMPH % 26.3 % (8-40); MCH 33.7 pg (25.7-33.7); MCHC 35.3 g/dl (32.0-35.9); MEAN CELL VOLUME 95.4 fl (80-96); MEAN PLT VOLUME 7.1 fl (7.5-11.1); MONO % 17.1 % (3.8-10.2); NEUT % 54.5 % (42.8-82.8); PLATELET COUNT 221 K/MM3 (134-434); RBC 4.09 M/mm3 (4.00-5.60); RDW 15.7 % (11.9-15.9); WHITE BLOOD COUNT 8.3 K/mm3 (4.0-10.0)
[2018-05-25] MEDS ORDERED: ACETAMINOPHEN INJECTION 100 ML IVPB ONE (18:48)
[2018-05-25 19:10] LABS: INR 1.06 (0.83-1.09); PROTHROMBIN TIME (PATIENT) 12.5 SEC (9.7-13.0)
[2018-05-25 19:12] LABS: ALBUMIN 4.2 g/dl (3.4-5.0); ALK PHOS 108 U/L (45-117); ANION GAP 7 MMOL/L (8-16); BILIRUBIN,TOTAL 0.3 mg/dL (0.2-1); BLOOD UREA NITROGEN 20 mg/dL (7-18); CALCIUM 8.9 mg/dL (8.5-10.1); CHLORIDE 108 mmol/L (98-107); CO2 25 mmol/L (21-32); CREATININE 0.8 mg/dL (0.55-1.3); GLUCOSE,RANDOM 83 mg/dL (74-106); N-TERMINAL BNP 128.6 pg/ml (5-450); POTASSIUM 4.2 mmol/L (3.5-5.1); SGOT/AST 21 U/L (15-37); SGPT/ALT 23 U/L (13-61); SODIUM 140 mmol/L (136-145); TOT PROT 7.5 g/dl (6.4-8.2)
--- NOTE | 2018-05-25 19:20 | PDOC ---
History of Present Illness - General Chief Complaint: Injury Stated Complaint: FALL Time Seen by Provider: 05/25/18 13:25 Past History - Past Medical History Allergies/Adverse Reactions: Allergies Allergy/AdvReac Type Severity Reaction Status Date / Time No Known Allergies Allergy Verified 01/02/18 18:17 Home Medications: Ambulatory Orders Citalopram Hydrobromide [Celexa -] 20 mg PO DAILY 04/18/14 Alfuzosin HCl [Alfuzosin HCl ER] 10 mg PO DAILY 04/28/15 Quetiapine Fumarate [Seroquel] 300 mg PO HS 04/28/15 Cyanocobalamin [Vitamin B12 -] 1,000 mcg PO DAILY 01/30/16 Diphenhydramine [Benadryl Capsule -] 50 mg PO HS 01/30/16 Gabapentin [Neurontin -] 300 mg PO HS 01/30/16 Metoprolol Tartrate [Lopressor -] 25 mg PO BID 01/30/16 metFORMIN HCL [Glucophage -] 850 mg PO DAILY@0700 10/30/16 Albuterol Sulfate Inhaler - [Ventolin HFA Inhaler -] 2 inh PO Q4H PRN 01/30/17 Aspirin [ASA -] 81 mg PO DAILY 01/30/17 Docusate Sodium [Colace -] 100 mg PO BID 01/30/17 Montelukast Na [Singulair -] 10 mg PO HS 01/30/17 Omeprazole 20 mg PO DAILY 01/30/17 Quinapril HCl [Accupril -] 10 mg PO DAILY 01/30/17 Rosuvastatin [Crestor -] 20 mg PO HS 01/30/17 Sitagliptin Phosphate [Januvia] 100 mg PO DAILY 01/30/17 Olopatadine HCl 1 drop OU BID #1 bottle 10/21/17 Varenicline Tartrate [Chantix -] 0.5 mg NR BID 30 Days #57 tab 11/21/17 Phenytoin Na Extended [Dilantin -] 200 mg PO BID #60 capsule 01/21/18 Ergocalciferol [Vitamin D2] 50,000 unit PO Q7D #4 capsule 05/25/18 Lactulose 10 gm PO DAILY #1 bottle 05/25/18 Multivitamin [Multiple Vitamins] 1 each PO DAILY #30 tablet 05/25/18 Oxycodone HCl/Acetaminophen [Percocet 10-325 mg Tablet] 1 each PO QID PRN #120 tablet MDD 4 05/25/18 Tizanidine HCl 4 mg PO BID PRN #60 tablet 05/25/18 Anemia: No Asthma: Yes Cancer: No Cardiac Disorders: No CVA: No COPD: Yes CHF: No Dementia: No Diabetes: Yes GI Disorders: Yes (ADENOMATOUS POLYP;DIVERLOSIS/ITIS;GASTRITIS;H/H) Disorders: Yes (ENLARGED PROSTATE) HTN: Yes Hypercholesterolemia: Yes Liver Disease: No Seizures: Yes (? seizure 01/03/18) Thyroid Disease: No - Surgical History Abdominal Surgery: Yes (hernia repair 10/23/16) Appendectomy: No Cardiac Surgery: Yes (STENT X1) Cholecystectomy: No Lung Surgery: No Neurologic Surgery: No Orthopedic Surgery: No - Immunization History Immunization Up to Date: Yes - Suicide/Smoking/Psychosocial Hx Smoking Status: Yes Smoking History: Never smoked Have you smoked in the past 12 months: Yes Number of Cigarettes Smoked Daily: 10 Cigars Per Day: 0 'Breaking Loose' booklet given: 06/07/15 Hx Alcohol Use: Yes (none x 10 years) Drug/Substance Use Hx: Yes (none x 10 years) Substance Use Type: Alcohol, Cocaine Hx Substance Use Treatment: Yes (outpatient rehab, AA) *Physical Exam - Vital Signs Last Vital Signs Temp Pulse Resp BP Pulse Ox 98.0 F 61 18 159/72 100 05/25/18 12:08 05/25/18 12:08 05/25/18 12:08 05/25/18 12:08 05/25/18 12:08 Moderate Sedation - Procedure Monitoring Vital Signs: Procedure Monitoring Vital Signs Temperature 98.0 F 05/25/18 12:08 Pulse Rate 61 05/25/18 12:08 Respiratory Rate 18 05/25/18 12:08 Blood Pressure 159/72 05/25/18 12:08 O2 Sat by Pulse Oximetry (%) 100 05/25/18 12:08 ED Treatment Course - LABORATORY CBC & Chemistry Diagram: 05/25/18 18:30 05/25/18 18:30 - ADDITIONAL ORDERS Additional order review: Laboratory Results 05/25/18 05/25/18 05/25/18 18:30 18:30 17:55 PT with INR 12.50 INR 1.06 Sodium 140 Potassium 4.2 Chloride 108 H Carbon Dioxide 25 Anion Gap 7 L BUN 20 H Creatinine 0.8 Creat Clearance w eGFR > 60 Random Glucose 83 Calcium 8.9 Total Bilirubin 0.3 AST 21 ALT 23 Alkaline Phosphatase 108 Creatine Kinase 394 H Troponin I 0.03 B-Natriuretic Peptide 128.6 Total Protein 7.5 Albumin 4.2 Blood Type AB POSITIVE Antibody Screen Negative 05/25/18 18:30 RBC 4.09 MCV 95.4 MCHC 35.3 RDW 15.7 MPV 7.1 L Neutrophils % 54.5 Lymphocytes % 26.3 D Monocytes % 17.1 H Eosinophils % 1.8 Basophils % 0.3 - Medications Given in the ED: ED Medications Discontinued Medications Generic Name Dose Route Start Last Admin Trade Name Freq PRN Reason Stop Dose Admin Acetaminophen 1,000 mg 05/25/18 14:01 05/25/18 18:56 Ofirmev Injection - IVPB 05/25/18 14:02 1,000 mg ONCE ONE Administration Diphtheria/Tetanus/Acell Pertussis 0.5 ml 05/25/18 14:01 05/25/18 18:55 Boostrix - IM 05/25/18 14:02 0.5 ml .ONCE ONE Administration Medical Decision Making - Medical Decision Making 05/25/18 19:[address] Montes. Patient is a 77 yo male w/ pmh of seizure disorder, NIDDM, asthma, COPD, HTN, HLD, BPH, spinal stenosis, disc herniation, chronic back pain, bipolar disorder who presented s/p unexplained syncopal episode. Head CT/CXR negative, patient will be admitted for tele-obs for further evaluation. *DC/Admit/Observation/Transfer Diagnosis at time of Disposition: Syncope and collapse, Laceration - Discharge Dispostion Decision to Admit order: Yes - Referrals - Patient Instructions - Post Discharge Activity
--- NOTE | 2018-05-25 20:30 | PN ---
Teaching Attending Note Name of Resident: Mp Larose ATTENDING PHYSICIAN STATEMENT I saw and evaluated the patient. I reviewed the resident's note and discussed the case with the resident. I agree with the resident's findings and plan as documented. SUBJECTIVE: Seen and examined; please see resident note for further historical information. Briefly, he has a complex PMH and is on multiple drugs at home that couls precipitate dizziness, etc. He was at [facility] pharmacy when he became dizzy and fell with +LOC; was witnessed, onlookers stated that he hit his head. HE was not seen convulsing and was not noted to be post ictal or to have lost control of his bowels or bladder. EMS was notified and he was brought to the hospital. He was seen in the ER and was found by the medicine team to have negative orthostatics. EKG nonrevealing. Dilantin level pending. Trauma survey negative on imaging. He was sutured and given a Tdap. Medicine was called for admission. He was seen in house in the past by Dr. Pitt for seizures. 10 sys ROS done and negative aside from HPI PMH (Hep A+ Ab, DM, Opiate dependent back pain, tobacco use, mild COPD, bipolar disorder, HTN, HLD, Seizure disorder, BPH, Spinal Stenosis, Adenomatous polyp) and PSH reviewed FH asked and noncontributory Socially significant for tobacco abuse, chronic opiate dependent back pain with good followup Medication list reviewed with resident; to be reconciled OBJECTIVE: VS, labs, imaging reviewed NAD, AAO, resting in bed. Negative OS VS. RRR s1/2 no mgr Lungs CTAB w/ sym exp NT ND +BS CN2-12 wnl, no fnd. Sensorium and strength fully intact b/l UE/LE. Normal mood, appropriate affect Labs show CBC and chemistry unremarkable. Cl 108 and BUN 20. UA pending. Dilantin level pending. CK is 394, CKMB 9.1. LFTs normal. HIV negative 2015. BNP wnl. CT head without acute findings CT cspine shows known thyroid nodules, dilation of cervical esophagys, and DJD of the spine. Thyroid US from 11/03 reviewed: cystic and solid nodules with followup recommended 08/03 CT Chest shows submucosal lesions in the gastric fundus and unchanged pulmonary nodules since 2014. PFTs reviewed; mild COPD with severe diffusion defect ASSESSMENT AND PLAN: Mr. Carmichael is a 77 y/o male presenting with syncope 1) Syncope -Ddx broad; cardiogenic vs. neurogenic vs. polypharmacy; negative OS VS in the ER, CT head wnl -In terms of CG: Check echo. He has risk factors for vascular disease so will check duplex -Continue his home medications -Fall precautions, neuro checks, seizure precations. Check his dilantin level. Should note not post ictal and no loss of bowel or bladder control after episode so less likely seizure. No need for stat neuro consultation. Consider based on result of further testing. -Monitor on telemetry. EKG reviewed. Check TSH. 2) Elevated CK, CKMB -Could be from the fall; trend and hydrate with 1L overnight of isotonic -Monitor tele 3) Diabetes Melitus -SSI when inpatient 4) HTN hx -Reconcile and continue appropriate home meds 5) HLD -Nonacute; FU OP 6) Bipolar Disorder -Continue home meds 7) Chronic Opiate-dependent back pain, spinal stenosis -Verify and continue home meds -History polysubstance abuse noted; will not provide add'l Rx on DC. 8) Mild COPD -Reviewed PFTs; not in exacerbation. 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 Followup OP 13) Thyroid Nodules -Known; reviewed old US 10/2017. Check TSH and recommend OP followup with endocrine. 14) Dilation of Cervical Esophagus -No c/o dysphagia, etc. Seen incidentally on CT C-spine. Barium Swallow ordered. Monitor for dysphagia/odynophagia. Consider GI consult based on workup. FENA -LR@100x1L then saline lock -PRN replete -DM diet -As tolerated, fall precautions Dispo: Pending workup may be <72 hours Full Code
[2018-05-25] MEDS ORDERED: LACTATED RINGERS SOLUTION 1,000 ML/1,000 ML INFUS.BAG IV SCH (21:45)
--- NOTE | 2018-05-25 22:15 | HP ---
CHIEF COMPLAINT: Fall PCP: Dr. Patricia Colbert HISTORY OF PRESENT ILLNESS: 77 y/o M with PMHx of Seizure Disorder, Asthma, Bipolar disorder, NIDDM, HTN was BIBEMS after falling. Earlier today, patient was going into [facility] where he felt dizzines, suddenly collapsed and hit the left side of his head on the Entrance door. Patient did not trip and mentions having imbalance with walking for the past 2 weeks. Patient lost consciousness with falling and woke confused for a few minutes following. Patient landed on his left side and denies blacking out, loss of bowel or bladder control. Denies biting his tongue and says this feels different from prior seizures. Witnesses of the fall mentioned to the patient that he was not convulsing. Patient mentions his last seizure was a few months ago due to noncompliance with Phenytoin and presented with Right facial twitching. Denies any recent sickness but mentions waking with cold sweats over the past 2 weeks. Denies any associated lightheadedness, palpitations headache, chest pain , SOB, fever, chills, dysuria. 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 Ambulation: Without assistance Residence: House in [place] Family History: Unknown Allergies No Known Allergies Allergy (Verified 05/25/18 20:20) HOME MEDICATIONS: Home Medications Medication Instructions Recorded Citalopram Hydrobromide [Celexa -] 20 mg PO DAILY 04/18/14 Alfuzosin HCl [Alfuzosin HCl ER] 10 mg PO DAILY 04/28/15 Quetiapine Fumarate [Seroquel] 300 mg PO HS 04/28/15 Cyanocobalamin [Vitamin B12 -] 1,000 mcg PO DAILY 01/30/16 Diphenhydramine [Benadryl Capsule 50 mg PO HS 01/30/16 -] Gabapentin [Neurontin -] 300 mg PO HS 01/30/16 Metoprolol Tartrate [Lopressor -] 25 mg PO BID 01/30/16 metFORMIN HCL [Glucophage -] 850 mg PO DAILY@0700 10/30/16 Albuterol Sulfate Inhaler - 2 inh PO Q4H PRN 01/30/17 [Ventolin HFA Inhaler -] Aspirin [ASA -] 81 mg PO DAILY 01/30/17 Docusate Sodium [Colace -] 100 mg PO BID 01/30/17 Montelukast Na [Singulair -] 10 mg PO HS 01/30/17 Omeprazole 20 mg PO DAILY 01/30/17 Quinapril HCl [Accupril -] 10 mg PO DAILY 01/30/17 Rosuvastatin [Crestor -] 20 mg PO HS 01/30/17 Sitagliptin Phosphate [Januvia] 100 mg PO DAILY 01/30/17 Olopatadine HCl 1 drop OU BID #1 bottle 10/21/17 Varenicline Tartrate [Chantix -] 0.5 mg NR BID 30 Days #57 tab 11/21/17 Phenytoin Na Extended [Dilantin -] 200 mg PO BID #60 capsule 01/21/18 Ergocalciferol [Vitamin D2] 50,000 unit PO Q7D #4 capsule 05/25/18 Lactulose 10 gm PO DAILY #1 bottle 05/25/18 Multivitamin [Multiple Vitamins] 1 each PO DAILY #30 tablet 05/25/18 Oxycodone HCl/Acetaminophen 1 each PO QID PRN #120 tablet MDD 4 05/25/18 [Percocet 10-325 mg Tablet] Tizanidine HCl 4 mg PO BID PRN #60 tablet 05/25/18 REVIEW OF SYSTEMS As per HPI PHYSICAL EXAMINATION Vital Signs - 24 hr 05/25/18 12:08 Temperature 98.0 F Pulse Rate 61 Respiratory 18 Rate Blood Pressure 159/72 O2 Sat by Pulse 100 Oximetry (%) ORTHOSTATICS: Supine 136/72 HR 57, Sitting 146/70 HR 63, Standing 132/61 HR 66 GENERAL: A&Ox3, NAD HEAD: 3cm stitched laceration over left superior orbital with surrounding swelling, Minimal tenderness to palpation, dried blood over wound site, No active drainage EYES: PERRL, EOMI EARS, NOSE, THROAT: Oropharynx clear without exudates. Moist mucous membranes. NECK: Normal range of motion, No JVD LUNGS: CTA b/l, No wheezes, No crackles HEART: Regular rate and rhythm, normal S1 and S2 without murmur ABDOMEN: Soft, nontender, not distended, normoactive bowel sounds, no guarding, no rebound, no masses. No hepatomegaly or splenomegaly. MUSCULOSKELETAL: Normal range of motion at all joints. No bony deformities or tenderness. No Midline tenderness to palpation. No CVA tenderness. EXTREMITIES: 2+ pulses, No peripheral edema. NEUROLOGICAL: Cranial nerves II-XII intact. Normal speech. Gross sensation intact throughout. 4/5 muscle strength throughout. Able to perform Finger to nose and rapid hand movements. SKIN: Warm, dry skin over b/l posterior feet Laboratory Results - last 24 hr 05/25/18 05/25/18 05/25/18 17:55 18:30 18:30 WBC 8.3 RBC 4.09 Hgb 13.7 Hct 39.0 MCV 95.4 MCH 33.7 MCHC 35.3 RDW 15.7 Plt Count 221 MPV 7.1 L Absolute Neuts (auto) 4.5 Neutrophils % 54.5 Lymphocytes % 26.3 D Monocytes % 17.1 H Eosinophils % 1.8 Basophils % 0.3 Nucleated RBC % 0 PT with INR 12.50 INR 1.06 Sodium Potassium Chloride Carbon Dioxide Anion Gap BUN Creatinine Creat Clearance w eGFR Random Glucose Calcium Total Bilirubin AST ALT Alkaline Phosphatase Creatine Kinase Creatine Kinase Index CK-MB (CK-2) Troponin I B-Natriuretic Peptide Total Protein Albumin Blood Type AB POSITIVE Antibody Screen Negative 05/25/18 18:30 WBC RBC Hgb Hct MCV MCH MCHC RDW Plt Count MPV Absolute Neuts (auto) Neutrophils % Lymphocytes % Monocytes % Eosinophils % Basophils % Nucleated RBC % PT with INR INR Sodium 140 Potassium 4.2 Chloride 108 H Carbon Dioxide 25 Anion Gap 7 L BUN 20 H Creatinine 0.8 Creat Clearance w eGFR > 60 Random Glucose 83 Calcium 8.9 Total Bilirubin 0.3 AST 21 ALT 23 Alkaline Phosphatase 108 Creatine Kinase 394 H Creatine Kinase Index 2.3 CK-MB (CK-2) 9.1 H Troponin I 0.03 B-Natriuretic Peptide 128.6 Total Protein 7.5 Albumin 4.2 Blood Type Antibody Screen ASSESSMENT/PLAN: 77 y/o M with PMHx of Seizure Disorder, Asthma, Bipolar disorder, NIDDM, HTN was BIBEMS after falling #Fall possibly due to Syncope -Will need to consider polypharmacy in addition to Cardiogenic vs Neuro causes -Orthostatics negative -CT Head and C-Spine negative for hemorrhage, fractures -EKG: Sinus rhythm with 1st degree AV Block, VR 62, QTc 432 -Given TDap in ED -UA, UTox, Phenytoin level, Lipid panel, TSH ECHO, Carotid doppler pending -LR @ 50 mls/hr -Seizure and Fall Precautions -NeuroChecks q2H -Tele monitoring #Elevated CK, CKMB -Possibly from fall -Repeat CK, CKMB -LR @ 50 mls/hr #Seizure Disorder -Unclear which type -Restart home dose Phenytoin, Will need Med-Rec -Phenytoin level pending #Bipolar disorder -Restart home dose Celexa, Seroquel #Asthma -Restart home dose Ventolin, Singulair #NIDDM -ISS BGMs ACHS #HTN -Restart home dose Lopressor, Quinapril #FEN -IV LR @ 50 -Lytes wnl -Diabetic Diet #PPx -DVT: Lovenox Dispo: Tele-Obs, Will need med-rec Visit type - Emergency Visit Emergency Visit: Yes ED Registration Date: 05/25/18 Care time: The patient presented to the Emergency Department on the above date and was hospitalized for further evaluation of their emergent condition. - New Patient This patient is new to me today: Yes Date on this admission: 05/27/18 - Critical Care Critical Care patient: No
[2018-05-25] MEDS ORDERED: ALBUTEROL SO4 8 GM HFA INHALER IH PRN (22:16)
[2018-05-25] MEDS: INSULIN SLIDING SCALE (NOVOLOG) 1 VIAL SQ SCH (23:01)
[2018-05-25] MEDS ORDERED: PHENYTOIN NA EXTENDED 100 MG CAPSULE (FP) PO SCH (23:37)
[2018-05-26] MEDS ORDERED: PHENYTOIN NA EXTENDED 100 MG CAPSULE (FP) PO ONE (00:15)
[2018-05-26] MEDS ORDERED: PHENYTOIN NA EXTENDED 100 MG CAPSULE (FP) ONE (00:19)
[2018-05-26 02:26] LABS: URINE APPEARANCE CLEAR; URINE BILIRUBIN NEGATIVE (<2.0 mg/dL); URINE COLOR LTYELLOW; URINE GLUCOSE (UA) NEGATIVE (NEGATIVE); URINE KETONE TRACE (NEGATIVE); URINE LEUK ESTERASE NEGATIVE (NEGATIVE); URINE NITRITE NEGATIVE (NEGATIVE); URINE PROTEIN NEGATIVE (NEGATIVE); URINE UROBILINOGEN NEGATIVE mg/dL (0.2-1.0)
[2018-05-26 02:32] LABS: COCAINE, UR NEGATIVE ng/ml (CUTOFF=300); METHADONE, UR NEGATIVE ng/ml (CUTOFF=300); OPIATES, URI NEGATIVE ng/ml (CUTOFF=300); PHENCYCLIDINE,URINE NEGATIVE ng/ml (CUTOFF=25); URINE AMPHETAMINES NEGATIVE ng/ml (CUTOFF=500); URINE BARBITURATES NEGATIVE ng/ml (CUTOFF=200); URINE BENZODIAZEPINES NEGATIVE ng/ml (CUTOFF=200)
[2018-05-26 07:27] LABS: ALBUMIN 3.8 g/dl (3.4-5.0); ALK PHOS 99 U/L (45-117); ANION GAP 6 MMOL/L (8-16); BILIRUBIN,TOTAL 0.4 mg/dL (0.2-1); BLOOD UREA NITROGEN 16 mg/dL (7-18); CALCIUM 8.6 mg/dL (8.5-10.1); CHLORIDE 108 mmol/L (98-107); CHOLESTEROL 234 mg/dL (50-200); CO2 24 mmol/L (21-32); CREATININE 0.7 mg/dL (0.55-1.3); GLUCOSE,RANDOM 103 mg/dL (74-106); HDL CHOLESTEROL 53 mg/dL (40-60); PHOSPHOROUS 2.8 mg/dL (2.5-4.9); POTASSIUM 3.9 mmol/L (3.5-5.1); SGOT/AST 20 U/L (15-37); SGPT/ALT 19 U/L (13-61); SODIUM 139 mmol/L (136-145); TOT PROT 6.6 g/dl (6.4-8.2); TRIGLYCERIDES 111 mg/dL (0-150)
[2018-05-26] MEDS ORDERED: CITALOPRAM HYDROBROMIDE 20 MG TABLET (FP) PO SCH (10:00)
[2018-05-26] MEDS ORDERED: ENOXAPARIN NA (PORCINE) 40 MG/0.4 ML DISP.SYRIN SQ SCH (10:00)
[2018-05-26] MEDS ORDERED: METOPROLOL TARTRATE 25 MG TABLET (FP) PO SCH (10:00)
[2018-05-26] MEDS ORDERED: PHENYTOIN NA EXTENDED 100 MG CAPSULE (FP) PO SCH (10:00)
[2018-05-26] MEDS ORDERED: QUINAPRIL HCL 10 MG TABLET (FP) PO SCH (10:00)
[2018-05-26] MEDS ORDERED: ASPIRIN 81 MG CHEWABLE TABLETS PO SCH (10:00)
--- NOTE | 2018-05-26 10:03 | EKG ---
Test Reason : Blood Pressure : / mmHG Vent. Rate : 062 BPM Atrial Rate : 062 BPM P-R Int : 252 ms QRS Dur : 084 ms QT Int : 426 ms P-R-T Axes : 086 064 042 degrees QTc Int : 432 ms SINUS RHYTHM WITH 1ST DEGREE A-V BLOCK MINIMAL VOLTAGE CRITERIA FOR LVH, MAY BE NORMAL VARIANT NONSPECIFIC T WAVE ABNORMALITY ABNORMAL ECG Confirmed by Norris Bañuelos MD ([id number]) on 05/26/2018 10:03:30 AM Referred By: Confirmed By:Norris Bañuelos MD
[2018-05-26 10:41] LABS: BASO % 0.6 % (0-2.0); EOS % 1.7 % (0-4.5); HEMATOCRIT 35.1 % (35.4-49); HEMOGLOBIN 12.7 GM/dL (11.7-16.9); MCH 34.2 pg (25.7-33.7); MCHC 36.2 g/dl (32.0-35.9); MEAN CELL VOLUME 94.4 fl (80-96); MEAN PLT VOLUME 6.8 fl (7.5-11.1); MONO % 18.2 % (3.8-10.2); NEUT % 52.5 % (42.8-82.8); PLATELET COUNT 196 K/MM3 (134-434); RBC 3.72 M/mm3 (4.00-5.60); RDW 15.5 % (11.9-15.9); WHITE BLOOD COUNT 6.7 K/mm3 (4.0-10.0)
[2018-05-26] MEDS ORDERED: CITALOPRAM HYDROBROMIDE 10 MG TABLET (FP) ONE (12:00)
[2018-05-26] MEDS: INSULIN SLIDING SCALE (NOVOLOG) 1 VIAL SQ SCH ×3 (12:01→17:20)
--- NOTE | 2018-05-26 12:10 | ECHO ---
Name: CINDY PETER Exam:Adult Echocardiogram Study Date: 05/26/2018 08:13 AM Age: 77 yrs Reason For Study: SYNCOPE Height: 67 in Weight: 161 lb BSA: 1.8 m2 MMode/2D Measurements & Calculations IVSd: 0.89 cm Ao root diam: 3.3 cm LVIDd: 4.3 cm LA dimension: 3.4 cm LVIDs: 2.8 cm LVPWd: 0.83 cm EDV(Teich): 83.2 ml ESV(Teich): 30.4 ml Doppler Measurements & Calculations MV E max markel: 66.6 cm/sec Ao V2 max: 127.2 cm/sec MV A max markel: 92.3 cm/sec Ao max P.5 mmHg MV E/A: 0.72 MV dec time: 0.19 sec LV V1 max P.4 mmHg Med Peak E' Markel: 5.1 cm/sec LV V1 max: 92.8 cm/sec Med E/e': 13.1 Lat Peak E' Markel: 8.4 cm/sec Lat E/e': 7.9 Procedure A complete two-dimensional transthoracic echocardiogram was performed (2D, M-mode, Doppler and color flow Doppler). Left Ventricle The left ventricular size, thickness and function are normal. Ejection Fraction = 65%. The transmitra l spectral Doppler flow pattern is suggestive of impaired LV relaxation. The left ventricular wall charley on is normal. Right Ventricle The right ventricle is normal in size and function. Atria Normal left and right atrial size and function. Mitral Valve The mitral valve is normal. There is trace to mild mitral regurgitation. Tricuspid Valve The tricuspid valve is normal in structure and function. There was insufficient TR detected to calcul ate RV systolic pressure. Aortic Valve There is mild aortic sclerosis.;. Pulmonic Valve The pulmonic valve is not well visualized. Great Vessels The aortic root is normal size. Normal aortic arch, descending and ascending aorta. Pericardium/Pleura There is no pericardial effusion. There is no pleural effusion. Interpretation Summary The left ventricular size, thickness and function are normal Ejection Fraction = 65%. The transmitral spectral Doppler flow pattern is suggestive of impaired LV relaxation. There is trace to mild mitral regurgitation. There was insufficient TR detected to calculate RV systolic pressure. There is mild aortic sclerosis.; MD Norris Bañuelos 05/26/2018 12:09 PM
[2018-05-26 15:12] VITALS: BP 133/63; PULSE 57; TEMP 98
--- NOTE | 2018-05-26 16:10 | PN ---
Teaching Attending Note Name of Resident: Dev Laguerre ATTENDING PHYSICIAN STATEMENT I saw and evaluated the patient. I reviewed the resident's note and discussed the case with the resident. I agree with the resident's findings and plan as documented. SUBJECTIVE: OBJECTIVE: Vital Signs Period Temp Pulse Resp BP Sys/Olivares Pulse Ox Last 24 Hr 98.0 F-98.4 F 55-65 20-20 132-155/56-81 98-99 Laboratory Results - last 24 hr 05/25/18 05/25/18 05/25/18 17:55 18:30 18:30 WBC 8.3 RBC 4.09 Hgb 13.7 Hct 39.0 MCV 95.4 MCH 33.7 MCHC 35.3 RDW 15.7 Plt Count 221 MPV 7.1 L Absolute Neuts (auto) 4.5 Neutrophils % 54.5 Lymphocytes % 26.3 D Monocytes % 17.1 H Eosinophils % 1.8 Basophils % 0.3 Nucleated RBC % 0 PT with INR 12.50 INR 1.06 Sodium Potassium Chloride Carbon Dioxide Anion Gap BUN Creatinine Creat Clearance w eGFR POC Glucometer Random Glucose Calcium Phosphorus Magnesium Total Bilirubin AST ALT Alkaline Phosphatase Creatine Kinase Creatine Kinase Index CK-MB (CK-2) Troponin I B-Natriuretic Peptide Total Protein Albumin Triglycerides Cholesterol Total LDL Cholesterol HDL Cholesterol TSH Urine Color Urine Appearance Urine pH Ur Specific [place] Urine Protein Urine Glucose (UA) Urine Ketones Urine Blood Urine Nitrite Urine Bilirubin Urine Urobilinogen Ur Leukocyte Esterase Opiates Screen Methadone Screen Barbiturate Screen Phenytoin Phencyclidine Screen Ur Amphetamines Screen MDMA (Ecstasy) Screen Benzodiazepines Screen Cocaine Screen U Marijuana (THC) Screen Blood Type AB POSITIVE Antibody Screen Negative 05/25/18 05/25/18 05/25/18 18:30 21:15 22:59 WBC RBC Hgb Hct MCV MCH MCHC RDW Plt Count MPV Absolute Neuts (auto) Neutrophils % Lymphocytes % Monocytes % Eosinophils % Basophils % Nucleated RBC % PT with INR INR Sodium 140 Potassium 4.2 Chloride 108 H Carbon Dioxide 25 Anion Gap 7 L BUN 20 H Creatinine 0.8 Creat Clearance w eGFR > 60 POC Glucometer 85.37561 Random Glucose 83 Calcium 8.9 Phosphorus Magnesium Total Bilirubin 0.3 AST 21 ALT 23 Alkaline Phosphatase 108 Creatine Kinase 394 H Creatine Kinase Index 2.3 CK-MB (CK-2) 9.1 H Troponin I 0.03 B-Natriuretic Peptide 128.6 Total Protein 7.5 Albumin 4.2 Triglycerides Cholesterol Total LDL Cholesterol HDL Cholesterol TSH Urine Color Urine Appearance Urine pH Ur Specific [place] Urine Protein Urine Glucose (UA) Urine Ketones Urine Blood Urine Nitrite Urine Bilirubin Urine Urobilinogen Ur Leukocyte Esterase Opiates Screen Methadone Screen Barbiturate Screen Phenytoin 25.6 H Phencyclidine Screen Ur Amphetamines Screen MDMA (Ecstasy) Screen Benzodiazepines Screen Cocaine Screen U Marijuana (THC) Screen Blood Type Antibody Screen 05/26/18 05/26/18 05/26/18 00:25 00:25 02:14 WBC RBC Hgb Hct MCV MCH MCHC RDW Plt Count MPV Absolute Neuts (auto) Neutrophils % Lymphocytes % Monocytes % Eosinophils % Basophils % Nucleated RBC % PT with INR INR Sodium Potassium Chloride Carbon Dioxide Anion Gap BUN Creatinine Creat Clearance w eGFR POC Glucometer Random Glucose Calcium Phosphorus Magnesium Total Bilirubin AST ALT Alkaline Phosphatase Creatine Kinase 430 H Creatine Kinase Index 1.7 CK-MB (CK-2) 7.5 H Troponin I < 0.02 B-Natriuretic Peptide Total Protein Albumin Triglycerides Cholesterol Total LDL Cholesterol HDL Cholesterol TSH Urine Color Ltyellow Urine Appearance Clear Urine pH 5.0 Ur Specific [place] 1.023 Urine Protein Negative Urine Glucose (UA) Negative Urine Ketones Trace H Urine Blood Negative Urine Nitrite Negative Urine Bilirubin Negative Urine Urobilinogen Negative Ur Leukocyte Esterase Negative Opiates Screen Methadone Screen Barbiturate Screen Phenytoin Phencyclidine Screen Ur Amphetamines Screen MDMA (Ecstasy) Screen Benzodiazepines Screen Cocaine Screen U Marijuana (THC) Screen Blood Type AB POSITIVE Antibody Screen 05/26/18 05/26/18 05/26/18 02:14 05:30 05:30 WBC RBC Hgb Hct MCV MCH MCHC RDW Plt Count MPV Absolute Neuts (auto) Neutrophils % Lymphocytes % Monocytes % Eosinophils % Basophils % Nucleated RBC % PT with INR INR Sodium 139 Potassium 3.9 Chloride 108 H Carbon Dioxide 24 Anion Gap 6 L BUN 16 Creatinine 0.7 Creat Clearance w eGFR > 60 POC Glucometer Random Glucose 103 Calcium 8.6 Phosphorus 2.8 Magnesium 2.0 Total Bilirubin 0.4 AST 20 ALT 19 Alkaline Phosphatase 99 Creatine Kinase 394 H Creatine Kinase Index 1.5 CK-MB (CK-2) 6.0 H Troponin I B-Natriuretic Peptide Total Protein 6.6 Albumin 3.8 Triglycerides 111 Cholesterol 234 H Total LDL Cholesterol 149 H HDL Cholesterol 53 TSH 1.50 D Urine Color Urine Appearance Urine pH Ur Specific [place] Urine Protein Urine Glucose (UA) Urine Ketones Urine Blood Urine Nitrite Urine Bilirubin Urine Urobilinogen Ur Leukocyte Esterase Opiates Screen Negative Methadone Screen Negative Barbiturate Screen Negative Phenytoin Phencyclidine Screen Negative Ur Amphetamines Screen Negative MDMA (Ecstasy) Screen Negative Benzodiazepines Screen Negative Cocaine Screen Negative U Marijuana (THC) Screen Negative Blood Type Antibody Screen 05/26/18 10:25 WBC 6.7 RBC 3.72 L Hgb 12.7 Hct 35.1 L MCV 94.4 MCH 34.2 H MCHC 36.2 H RDW 15.5 Plt Count 196 MPV 6.8 L Absolute Neuts (auto) 3.5 Neutrophils % 52.5 Lymphocytes % 27.0 Monocytes % 18.2 H Eosinophils % 1.7 Basophils % 0.6 Nucleated RBC % 0 PT with INR INR Sodium Potassium Chloride Carbon Dioxide Anion Gap BUN Creatinine Creat Clearance w eGFR POC Glucometer Random Glucose Calcium Phosphorus Magnesium Total Bilirubin AST ALT Alkaline Phosphatase Creatine Kinase Creatine Kinase Index CK-MB (CK-2) Troponin I B-Natriuretic Peptide Total Protein Albumin Triglycerides Cholesterol Total LDL Cholesterol HDL Cholesterol TSH Urine Color Urine Appearance Urine pH Ur Specific [place] Urine Protein Urine Glucose (UA) Urine Ketones Urine Blood Urine Nitrite Urine Bilirubin Urine Urobilinogen Ur Leukocyte Esterase Opiates Screen Methadone Screen Barbiturate Screen Phenytoin Phencyclidine Screen Ur Amphetamines Screen MDMA (Ecstasy) Screen Benzodiazepines Screen Cocaine Screen U Marijuana (THC) Screen Blood Type Antibody Screen Current Medications Generic Name Dose Route Start Last Admin Trade Name Freq PRN Reason Stop Dose Admin Albuterol Sulfate 2 puff 05/25/18 22:16 Ventolin Hfa Inhaler - IH Q4H PRN WHEEZING Aspirin 81 mg 05/26/18 10:00 05/26/18 11:57 Asa - PO 81 mg DAILY DAVID Administration Citalopram Hydrobromide 20 mg 05/26/18 10:00 05/26/18 12:01 Celexa - PO 20 mg DAILY DAVID Administration Enoxaparin Sodium 40 mg 05/26/18 10:00 05/26/18 12:00 Lovenox - SQ 40 mg DAILY DAVID Administration Gabapentin 300 mg 05/26/18 22:00 Neurontin - PO HS DAVID Insulin Aspart 1 vial 05/25/18 22:00 05/26/18 14:48 Novolog Vial Sliding Scale - SQ Not Given ACHS [facility] Protocol Metoprolol Tartrate 25 mg 05/26/18 10:00 05/26/18 11:59 Lopressor - PO 25 mg BID DAVID Administration Montelukast Sodium 10 mg 05/26/18 22:00 Singulair - PO HS DAVID Phenytoin Sodium 200 mg 05/25/18 23:37 05/26/18 11:58 Dilantin - PO 200 mg BID DAVID Administration Quetiapine Fumarate 300 mg 05/26/18 22:00 Seroquel - PO HS DAVID Quinapril HCl 10 mg 05/26/18 10:00 05/26/18 11:56 Accupril - PO 10 mg DAILY DAVID Administration ASSESSMENT AND PLAN: This is a 77 year old man with a history of seizure disorder, COPD, bipolar disorder, type 2 DM, HTN, hyperlipidemia, BPH, chronic back pain who presented to the ED after a fall. 1. s/p fall, possible syncope -Ddx broad; cardiogenic vs. neurogenic vs. polypharmacy; negative OS VS in the ER, CT head wnl -In terms of CG: Check echo. He has risk factors for vascular disease so will check duplex -Continue his home medications -Fall precautions, neuro checks, seizure precations. Check his dilantin level. Should note not post ictal and no loss of bowel or bladder control after episode so less likely seizure. No need for stat neuro consultation. Consider based on result of further testing. -Monitor on telemetry. EKG reviewed. Check TSH. 2. Elevated CK, CKMB -Could be from the fall; trend and hydrate with 1L overnight of isotonic -Monitor tele 3. Type 2 DM -SSI when inpatient 4. HTN -Reconcile and continue appropriate home meds 5. Hyperlipidemia -Nonacute; FU OP 6. Bipolar disorder -Continue home meds 7. Chronic back pain, spinal stenosis -Verify and continue home meds -History polysubstance abuse noted; will not provide add'l Rx on DC. 8. COPD -Reviewed PFTs; not in exacerbation. PRN nebs and ensure followup with PCP to optimize inhalers 9. BPH -Followup OP; monitor for retention 10. Seizure disorder -Checking dilantin level; per #1 11. Nicotine dependence -Offer NRT; application counselor 12. Lung nodules -Known since 2014; unchanged on [address] Followup OP 13. Thyroid nodules -Known; reviewed old US 10/2017. Check TSH and recommend OP followup with endocrine.
--- NOTE | 2018-05-26 16:33 | DS ---
Physical Exam: SUBJECTIVE: Patient seen and examined at bedside this morning. He does not endorse any new complaints today. Denies, fevers, chills, shortness of breath, chest pain, palpitations, abdominal pain, nausea, vomiting. OBJECTIVE: Vital Signs Period Temp Pulse Resp BP Sys/Olivares Pulse Ox Last 24 Hr 98.0 F-98.4 F 55-65 20-20 132-155/56-81 98-99 PHYSICAL EXAM GENERAL: The patient is awake, alert, and fully oriented, in no acute distress. HEAD: Normocephalic. 3cm laceration over left eye-brow. Sutured. Clean, dry, non bleeding. EYES: PERRL, extraocular movements intact, sclera anicteric, conjunctiva clear. Swelling noted over left eye. ENT: Oropharynx clear without exudates, moist mucous membranes. NECK: Supple without lymphadenopathy. No JVD. LUNGS: Breath sounds equal, clear to auscultation bilaterally. No wheezes, no crackles. No accessory muscle use. HEART: Regular rate and rhythm, S1, S2 without murmur, rub or gallop. ABDOMEN: Soft, nontender, nondistended. Normoactive bowel sounds X4 quadrants. No guarding, no rebound tenderness. EXTREMITIES: 2+ radial and dorsalis pedis pulses B/L. Warm, well-perfused. No edema B/L lower extremities. NEUROLOGICAL: Cranial nerves II through XII grossly intact. Normal speech and gait. PSYCH: Normal mood, normal affect upon my encounter. SKIN: Warm, dry. Laceration over left eyebrow. LABS Laboratory Results - last 24 hr 05/25/18 05/25/18 05/25/18 17:55 18:30 18:30 WBC 8.3 RBC 4.09 Hgb 13.7 Hct 39.0 MCV 95.4 MCH 33.7 MCHC 35.3 RDW 15.7 Plt Count 221 MPV 7.1 L Absolute Neuts (auto) 4.5 Neutrophils % 54.5 Lymphocytes % 26.3 D Monocytes % 17.1 H Eosinophils % 1.8 Basophils % 0.3 Nucleated RBC % 0 PT with INR 12.50 INR 1.06 Sodium Potassium Chloride Carbon Dioxide Anion Gap BUN Creatinine Creat Clearance w eGFR POC Glucometer Random Glucose Calcium Phosphorus Magnesium Total Bilirubin AST ALT Alkaline Phosphatase Creatine Kinase Creatine Kinase Index CK-MB (CK-2) Troponin I B-Natriuretic Peptide Total Protein Albumin Triglycerides Cholesterol Total LDL Cholesterol HDL Cholesterol TSH Urine Color Urine Appearance Urine pH Ur Specific [place] Urine Protein Urine Glucose (UA) Urine Ketones Urine Blood Urine Nitrite Urine Bilirubin Urine Urobilinogen Ur Leukocyte Esterase Opiates Screen Methadone Screen Barbiturate Screen Phenytoin Phencyclidine Screen Ur Amphetamines Screen MDMA (Ecstasy) Screen Benzodiazepines Screen Cocaine Screen U Marijuana (THC) Screen Blood Type AB POSITIVE Antibody Screen Negative 05/25/18 05/25/18 05/25/18 18:30 21:15 22:59 WBC RBC Hgb Hct MCV MCH MCHC RDW Plt Count MPV Absolute Neuts (auto) Neutrophils % Lymphocytes % Monocytes % Eosinophils % Basophils % Nucleated RBC % PT with INR INR Sodium 140 Potassium 4.2 Chloride 108 H Carbon Dioxide 25 Anion Gap 7 L BUN 20 H Creatinine 0.8 Creat Clearance w eGFR > 60 POC Glucometer 85.50245 Random Glucose 83 Calcium 8.9 Phosphorus Magnesium Total Bilirubin 0.3 AST 21 ALT 23 Alkaline Phosphatase 108 Creatine Kinase 394 H Creatine Kinase Index 2.3 CK-MB (CK-2) 9.1 H Troponin I 0.03 B-Natriuretic Peptide 128.6 Total Protein 7.5 Albumin 4.2 Triglycerides Cholesterol Total LDL Cholesterol HDL Cholesterol TSH Urine Color Urine Appearance Urine pH Ur Specific [place] Urine Protein Urine Glucose (UA) Urine Ketones Urine Blood Urine Nitrite Urine Bilirubin Urine Urobilinogen Ur Leukocyte Esterase Opiates Screen Methadone Screen Barbiturate Screen Phenytoin 25.6 H Phencyclidine Screen Ur Amphetamines Screen MDMA (Ecstasy) Screen Benzodiazepines Screen Cocaine Screen U Marijuana (THC) Screen Blood Type Antibody Screen 05/26/18 05/26/18 05/26/18 00:25 00:25 02:14 WBC RBC Hgb Hct MCV MCH MCHC RDW Plt Count MPV Absolute Neuts (auto) Neutrophils % Lymphocytes % Monocytes % Eosinophils % Basophils % Nucleated RBC % PT with INR INR Sodium Potassium Chloride Carbon Dioxide Anion Gap BUN Creatinine Creat Clearance w eGFR POC Glucometer Random Glucose Calcium Phosphorus Magnesium Total Bilirubin AST ALT Alkaline Phosphatase Creatine Kinase 430 H Creatine Kinase Index 1.7 CK-MB (CK-2) 7.5 H Troponin I < 0.02 B-Natriuretic Peptide Total Protein Albumin Triglycerides Cholesterol Total LDL Cholesterol HDL Cholesterol TSH Urine Color Ltyellow Urine Appearance Clear Urine pH 5.0 Ur Specific [place] 1.023 Urine Protein Negative Urine Glucose (UA) Negative Urine Ketones Trace H Urine Blood Negative Urine Nitrite Negative Urine Bilirubin Negative Urine Urobilinogen Negative Ur Leukocyte Esterase Negative Opiates Screen Methadone Screen Barbiturate Screen Phenytoin Phencyclidine Screen Ur Amphetamines Screen MDMA (Ecstasy) Screen Benzodiazepines Screen Cocaine Screen U Marijuana (THC) Screen Blood Type AB POSITIVE Antibody Screen 05/26/18 05/26/18 05/26/18 02:14 05:30 05:30 WBC RBC Hgb Hct MCV MCH MCHC RDW Plt Count MPV Absolute Neuts (auto) Neutrophils % Lymphocytes % Monocytes % Eosinophils % Basophils % Nucleated RBC % PT with INR INR Sodium 139 Potassium 3.9 Chloride 108 H Carbon Dioxide 24 Anion Gap 6 L BUN 16 Creatinine 0.7 Creat Clearance w eGFR > 60 POC Glucometer Random Glucose 103 Calcium 8.6 Phosphorus 2.8 Magnesium 2.0 Total Bilirubin 0.4 AST 20 ALT 19 Alkaline Phosphatase 99 Creatine Kinase 394 H Creatine Kinase Index 1.5 CK-MB (CK-2) 6.0 H Troponin I B-Natriuretic Peptide Total Protein 6.6 Albumin 3.8 Triglycerides 111 Cholesterol 234 H Total LDL Cholesterol 149 H HDL Cholesterol 53 TSH 1.50 D Urine Color Urine Appearance Urine pH Ur Specific [place] Urine Protein Urine Glucose (UA) Urine Ketones Urine Blood Urine Nitrite Urine Bilirubin Urine Urobilinogen Ur Leukocyte Esterase Opiates Screen Negative Methadone Screen Negative Barbiturate Screen Negative Phenytoin Phencyclidine Screen Negative Ur Amphetamines Screen Negative MDMA (Ecstasy) Screen Negative Benzodiazepines Screen Negative Cocaine Screen Negative U Marijuana (THC) Screen Negative Blood Type Antibody Screen 05/26/18 10:25 WBC 6.7 RBC 3.72 L Hgb 12.7 Hct 35.1 L MCV 94.4 MCH 34.2 H MCHC 36.2 H RDW 15.5 Plt Count 196 MPV 6.8 L Absolute Neuts (auto) 3.5 Neutrophils % 52.5 Lymphocytes % 27.0 Monocytes % 18.2 H Eosinophils % 1.7 Basophils % 0.6 Nucleated RBC % 0 PT with INR INR Sodium Potassium Chloride Carbon Dioxide Anion Gap BUN Creatinine Creat Clearance w eGFR POC Glucometer Random Glucose Calcium Phosphorus Magnesium Total Bilirubin AST ALT Alkaline Phosphatase Creatine Kinase Creatine Kinase Index CK-MB (CK-2) Troponin I B-Natriuretic Peptide Total Protein Albumin Triglycerides Cholesterol Total LDL Cholesterol HDL Cholesterol TSH Urine Color Urine Appearance Urine pH Ur Specific [place] Urine Protein Urine Glucose (UA) Urine Ketones Urine Blood Urine Nitrite Urine Bilirubin Urine Urobilinogen Ur Leukocyte Esterase Opiates Screen Methadone Screen Barbiturate Screen Phenytoin Phencyclidine Screen Ur Amphetamines Screen MDMA (Ecstasy) Screen Benzodiazepines Screen Cocaine Screen U Marijuana (THC) Screen Blood Type Antibody Screen HOSPITAL COURSE: Date of Admission:05/25/18 Date of Discharge: 05/26/18 Patient is a 77 year old male with history of hypertension, asthma, seizure disorder, bipolar disorder, diabetes mellitus, presenting after a fall. CT head showed no acute intracranial pathology. CT cervical spine showed no fractures, however, noted thyroid nodules. Chest Xray showed cardiomegaly with no acute disease. EKG showed normnal sinus rhythm at 62 BPM with first degree heart block. Cardiac ECHO showed left ventricle size, thickness, functon normal, EF= 65. Carotid doppler showed no hemodynamically significant stenosis. Patient was able to walk 50 feet on level ground without cane, walker, or assistance. He denied any lightheadedness, dizziness, or change with respect to his gait from baseline. Patient was discharged to follow up with primary care physician, staple laster, and geospatial specialist. Medications were reconciled with his pharmacy ; Percocet and Tizanidine were held due to possible contribution to fall. Minutes to complete discharge: 35 Discharge Summary Reason For Visit: LACERATION/SYNCOP& COLLAPSE Current Active Problems Diabetes mellitus treated with oral medication (Acute) History of syphilis (Acute) Laceration (Acute) Screening examination for venereal disease (Acute) Syncope and collapse (Acute) Bipolar 1 disorder (Chronic) Bradycardia (Chronic) COPD - Chronic obstructive lung disease (Chronic) Chronic pain (Chronic) Chronic use of opiate drugs therapeutic purposes (Chronic) Constipation (Chronic) History of blurry vision (Chronic) Hyperlipidemia (Chronic) Nicotine dependence (Chronic) Osteoarthritis of knee (Chronic) Osteoarthritis of multiple joints (Chronic) Radiculopathy (Chronic) Seizure disorder (Chronic) Spinal stenosis (Chronic) Spondylolisthesis (Chronic) high blood pressure (Chronic) Condition: Stable - Instructions Diet, Activity, Other Instructions: You were admitted to the hospital after a fall. Your CT scan of your head and neck showed no bleeding or fractures. Your CT scan did show some incidental thyroid nodules. You will follow up with staple laster Dr. Lovelace within one week for further evaluation. Your EKG showed an arrhythmia (first degree heart block). You will follow up with geospatial specialist Dr. Bañuelos for further evaluation. You are being discharged home. Continue taking your home medications as directed. We are holding your Percoset and Tizanidine as these medications may contribute to loss of balance. Discuss these changes with your primary care physician. Follow up with your primary care physician within two to three days after discharge. Your primary care physician will remove your stitches. Please return to the nearest Emergency Department if you experience worsening symptoms, changes in vision, dizziness, falls, loss of consciousness, fevers, chills, shortness of breath, chest pain, palpitations, abdominal pain, nausea, vomiting. Referrals: Patricia Colbert [Other] - 05/28/18 Norris Bañuelos MD [Staff Physician] - 1 Week Marichuy Lovelace MD [Staff Physician] - 1 Week Disposition: HOME - Home Medications Comprehensive Discharge Medication List: Ambulatory Orders Citalopram Hydrobromide [Celexa -] 20 mg PO DAILY 04/18/14 Alfuzosin HCl [Alfuzosin HCl ER] 10 mg PO DAILY 04/28/15 Quetiapine Fumarate [Seroquel] 300 mg PO HS 04/28/15 Diphenhydramine [Benadryl Capsule -] 50 mg PO HS 01/30/16 metFORMIN HCL [Glucophage -] 850 mg PO DAILY@0700 10/30/16 Albuterol Sulfate Inhaler - [Ventolin HFA Inhaler -] 2 inh PO Q4H PRN 01/30/17 Aspirin [ASA -] 81 mg PO DAILY 01/30/17 Docusate Sodium [Colace -] 100 mg PO BID 01/30/17 Omeprazole 20 mg PO DAILY 01/30/17 Quinapril HCl [Accupril -] 10 mg PO DAILY 01/30/17 Rosuvastatin [Crestor -] 20 mg PO HS 01/30/17 Sitagliptin Phosphate [Januvia] 100 mg PO DAILY 01/30/17 Ergocalciferol [Vitamin D2] 50,000 unit PO Q7D #4 capsule 05/25/18 Lactulose 10 gm PO DAILY #1 bottle 05/25/18 Fluticasone/Salmeterol [Advair 250-50 Diskus] 1 each IH BID 05/26/18 Metoprolol Tartrate [Lopressor -] 25 mg PO DAILY 05/26/18 Phenytoin Na Extended [Dilantin -] 100 mg PO TID 05/26/18 This patient is new to me today: Yes Date on this admission: 05/26/18 Emergency Visit: Yes ED Registration Date: 05/25/18 Care time: The patient presented to the Emergency Department on the above date and was hospitalized for further evaluation of their emergent condition. Critical Care patient: No - Discharge Referral Referred to [facility] No
[2018-05-26 17:17] VITALS: BMI 26.7
[2018-05-26] MEDS ORDERED: MONTELUKAST NA 10 MG TABLET PO SCH (22:00)
[2018-05-26] MEDS ORDERED: QUEtiapine FUMARATE 300 MG TABLET PO SCH (22:00)
[2018-05-26] MEDS ORDERED: GABAPENTIN 300 MG CAPSULE (FP) PO SCH (22:00)
== END 2018-05-26 19:12 | disposition home or self-care (01) ==
LOC: JER 12:02 → JERBED 19:46
PROVIDERS: ADMIT Internal Medicine; ATTEND Internal Medicine
PROC: 0HQ1XZZ Repair Face Skin, External Approach (ICD-10-PCS; principal; 2018-05-25)
PROC: 3E0234Z Introduction of Serum, Toxoid and Vaccine into Muscle, Percutaneous Approach (ICD-10-PCS; 2018-05-25)
DX: R55 Syncope and collapse (principal); S01.112A Laceration without foreign body of left eyelid and periocular area, initial encounter; W01.198A Fall on same level from slipping, tripping and stumbling with subsequent striking against other object, initial encounter; Y93.89 Activity, other specified; Y92.89 Other specified places as the place of occurrence of the external cause; Y99.8 Other external cause status; I25.10 Atherosclerotic heart disease of native coronary artery without angina pectoris; I10 Essential (primary) hypertension; Z95.5 Presence of coronary angioplasty implant and graft; E78.5 Hyperlipidemia, unspecified; E11.9 Type 2 diabetes mellitus without complications; Z79.84 Long term (current) use of oral hypoglycemic drugs; J45.909 Unspecified asthma, uncomplicated; F31.9 Bipolar disorder, unspecified; F11.20 Opioid dependence, uncomplicated; N40.0 Benign prostatic hyperplasia without lower urinary tract symptoms; M54.5 Low back pain; G89.29 Other chronic pain; M17.0 Bilateral primary osteoarthritis of knee; M48.00 Spinal stenosis, site unspecified; K57.40 Diverticulitis of both small and large intestine with perforation and abscess without bleeding; M16.12 Unilateral primary osteoarthritis, left hip; M46.90 Unspecified inflammatory spondylopathy, site unspecified; Z86.19 Personal history of other infectious and parasitic diseases; Z90.79 Acquired absence of other genital organ(s); Z87.19 Personal history of other diseases of the digestive system
CPT/HCPCS: 12013; 36415; 70450-TC; 71045-TC-FY; 72125-TC; 80048; 80053; 80061; 80185; 80307; 81003; 82550; 82553; 82962; 83721; 83735; 83880; 84100; 84443; 84484; 85025; 85610; 86850; 86900; 86901; 87086; 90471; 90715; 93005; 93010; 93306-TC; 93880-TC; 99285-25; G0378; G0463-25; J0131